=== PATIENT | female | born 1940 | race Caucasian/White ===

== ENCOUNTER → 2016-09-28 | Outpatient (REF) | payer MEDICARE ==
[~2016-09-28] MED LIST: CENTTAB47 PO; COLA100C3 PO; DULC5TAB PO; FLEEENE4 PR; GABA-282 PO; IBUP-1114 PO; LEVO75TA4 PO; LIDO5DIS36 TD; MOM30SS PO; MULTLIQ PO; PERC5TAB6 PO; VITA500046 PO; [UNRECOGNIZED DRUG - MIXTURE] PO
== END ==
LOC: M LABDRAW1 11:55
PROVIDERS: ATTEND Internal Medicine Endocrinology, Diabetes & Metabolism
DX: E06.3 Autoimmune thyroiditis (principal)

== ENCOUNTER → 2017-04-15 | Outpatient (REF) | payer MEDICARE ==
[2017-04-15 19:09] LABS: HEMATOCRIT 42.2 % (36.0-47.0); HEMOGLOBIN 13.4 g/dl (12.0-16.0); MEAN CORPUSCULAR HEMOGLOBIN 29.2 pg (27.0-33.0); MEAN CORPUSCULAR HGB CONC 31.8 g/dl (32.0-36.5); MEAN CORPUSCULAR VOLUME 91.9 fl (80.0-96.0); PLATELET COUNT, AUTOMATED 296 10^3/uL (150-450); RED BLOOD COUNT 4.59 10^6/uL (4.00-5.40); RED CELL DISTRIBUTION WIDTH 13.2 % (11.5-14.5)
[2017-04-15 20:04] LABS: ALBUMIN/GLOBULIN RATIO 1.25 (1.00-1.93); ALKALINE PHOSPHATASE 60 U/L (45-117); ALT/SGPT 27 U/L (12-78); ANION GAP 7 MEQ/L (8-16); AST/SGOT 17 U/L (7-37); BILIRUBIN,TOTAL 0.6 MG/DL (0.2-1.0); BLOOD UREA NITROGEN 22 MG/DL (7-18); CALCIUM LEVEL 9.2 MG/DL (8.8-10.2); CARBON DIOXIDE LEVEL 29 MEQ/L (21-32); CHLORIDE LEVEL 109 MEQ/L (98-107); CHOLESTEROL LEVEL 182 MG/DL (<200); CHOLESTEROL RISK RATIO 2.563 (<5); FREE T4 1.15 NG/DL (0.76-1.46); GLOMERULAR FILTRATION RATE > 60.0 (>39); GLUCOSE, FASTING 82 MG/DL (83-110); HDL CHOLESTEROL 71 MG/DL (>40); LDL CHOLESTEROL 93.2 MG/DL (<100); NON-HDL-C 111 MG/DL; SODIUM LEVEL 145 MEQ/L (136-145); TOTAL PROTEIN 7.2 GM/DL (6.4-8.2); TRIGLYCERIDES LEVEL 89 MG/DL (<150)
[2017-04-15 21:25] LABS: TOTAL 25(OH) VITAMIN D 43.2 NG/ML (30.0-100.0)
== END ==
LOC: M SFHCADAM 15:19
DX: M25.562 Pain in left knee (principal); E03.9 Hypothyroidism, unspecified; E78.5 Hyperlipidemia, unspecified; E55.9 Vitamin D deficiency, unspecified
CPT/HCPCS: 84443

== ENCOUNTER → 2017-08-09 | Outpatient (REF) | payer MEDICARE ==
[2017-08-09 16:18] LABS: TOTAL 25(OH) VITAMIN D 35.6 NG/ML (30.0-100.0)
== END ==
LOC: M LABDRAW1 13:35
DX: E06.3 Autoimmune thyroiditis (principal); E55.9 Vitamin D deficiency, unspecified
CPT/HCPCS: 84443

== ENCOUNTER → 2018-04-18 | Outpatient (REF) | payer MEDICARE ==
[~2018-04-18] MED LIST changes: -COLA100C3 PO; +COLA100C5 PO; -GABA-282 PO; +GABA-843 PO; -LIDO5DIS36 TD; +LIDO5DIS41 TD; +PERC5TAB12 PO; -PERC5TAB6 PO
[2018-04-18 11:01] LABS: ALBUMIN 3.6 GM/DL (3.2-5.2); ALT/SGPT 22 U/L (12-78); BILIRUBIN,TOTAL 0.6 MG/DL (0.2-1.0); BLOOD UREA NITROGEN 17 MG/DL (7-18); CALCIUM LEVEL 8.3 MG/DL (8.8-10.2); CARBON DIOXIDE LEVEL 27 MEQ/L (21-32); CHLORIDE LEVEL 107 MEQ/L (98-107); CHOLESTEROL LEVEL 158 MG/DL (<200); CHOLESTEROL RISK RATIO 2.548 (<5); CREATININE FOR GFR 0.62 MG/DL (0.55-1.30); FREE T4 1.18 NG/DL (0.76-1.46); GLOMERULAR FILTRATION RATE > 60.0 (>32); GLUCOSE, FASTING 86 MG/DL (70-100); HDL CHOLESTEROL 62 MG/DL (>40); LDL CHOLESTEROL 81 MG/DL (<100); NON-HDL-C 96 MG/DL; POTASSIUM SERUM 4.1 MEQ/L (3.5-5.1); SODIUM LEVEL 143 MEQ/L (136-145); TOTAL PROTEIN 6.8 GM/DL (6.4-8.2); TRIGLYCERIDES LEVEL 77 MG/DL (<150)
[2018-04-18 11:47] LABS: TOTAL 25(OH) VITAMIN D 53.8 NG/ML (30.0-100.0)
== END ==
LOC: M LABDRAW1 09:20
PROVIDERS: ATTEND Family Medicine
DX: E03.9 Hypothyroidism, unspecified (principal); E78.5 Hyperlipidemia, unspecified; E55.9 Vitamin D deficiency, unspecified

== ENCOUNTER → 2019-06-01 | Outpatient (REF) | payer MEDICARE ==
[2019-06-01 13:57] LABS: ALBUMIN 3.9 GM/DL (3.2-5.2); ALT/SGPT 31 U/L (12-78); BILIRUBIN,TOTAL 0.5 MG/DL (0.2-1.0); BLOOD UREA NITROGEN 14 MG/DL (7-18); CARBON DIOXIDE LEVEL 32 MEQ/L (21-32); CHLORIDE LEVEL 108 MEQ/L (98-107); CHOLESTEROL LEVEL 172 MG/DL (<200); CHOLESTEROL RISK RATIO 2.819 (<5); CREATININE FOR GFR 0.65 MG/DL (0.55-1.30); FREE T4 1.13 NG/DL (0.76-1.46); GLOMERULAR FILTRATION RATE > 60.0 (>32); GLUCOSE, FASTING 82 MG/DL (70-100); HDL CHOLESTEROL 61 MG/DL (>40); LDL CHOLESTEROL 94 MG/DL (<100); NON-HDL-C 111 MG/DL; POTASSIUM SERUM 4.3 MEQ/L (3.5-5.1); SODIUM LEVEL 142 MEQ/L (136-145); TRIGLYCERIDES LEVEL 86 MG/DL (<150)
[2019-06-01 13:58] LABS: HEMATOCRIT 44.3 % (36.0-47.0); HEMOGLOBIN 13.9 g/dl (12.0-15.5); MEAN CORPUSCULAR HEMOGLOBIN 28.7 pg (27.0-33.0); MEAN CORPUSCULAR HGB CONC 31.4 g/dl (32.0-36.5); MEAN CORPUSCULAR VOLUME 91.3 fl (80.0-96.0); PLATELET COUNT, AUTOMATED 312 10^3/uL (150-450); RED BLOOD COUNT 4.85 10^6/uL (4.00-5.40)
== END ==
LOC: M LABDRAW1 12:49
PROVIDERS: ATTEND Family Medicine
DX: H93.13 Tinnitus, bilateral (principal); E03.9 Hypothyroidism, unspecified; E78.5 Hyperlipidemia, unspecified

== ENCOUNTER → 2019-06-28 | Outpatient (CLI) | payer MEDICARE ==
--- NOTE | 2019-06-28 09:48 | REP ---
CHEST X-RAY: TWO VIEWS. HISTORY: Acute bronchitis. No comparison study. FINDINGS: The lungs are symmetrically aerated and free of focal infiltrate. The heart is not enlarged. The aorta is calcific and somewhat tortuous. Pulmonary vasculature is not increased. No significant bony abnormality is seen. There is a peripherally calcified 4.1 cm lesion in the right upper quadrant of the abdomen which may be in the liver or the gallbladder. Large stone versus peripherally calcified mass. Consider hepatic CT study. IMPRESSION: No active cardiopulmonary disease. 4.1 cm peripherally calcified lesion in the right upper quadrant. Hepatic versus gallbladder. Consider abdominal CT. Electronically Signed by Richie Swanson MD 06/28/2019 12:15 P
== END ==
LOC: M WUC 08:49
PROVIDERS: ATTEND Physician Assistant
DX: J20.9 Acute bronchitis, unspecified (principal)

== ENCOUNTER → 2020-02-06 | Outpatient (REF) | payer MEDICARE ==
[2020-02-06 12:21] LABS: HEMATOCRIT 45.1 % (36.0-47.0); HEMOGLOBIN 14.2 g/dl (12.0-15.5); MEAN CORPUSCULAR HEMOGLOBIN 28.6 pg (27.0-33.0); MEAN CORPUSCULAR HGB CONC 31.5 g/dl (32.0-36.5); MEAN CORPUSCULAR VOLUME 90.7 fl (80.0-96.0); PLATELET COUNT, AUTOMATED 296 10^3/uL (150-450); RED BLOOD COUNT 4.97 10^6/uL (4.00-5.40); WHITE BLOOD COUNT 7.8 10^3/uL (4.0-10.0)
[2020-02-06 13:04] LABS: ALBUMIN 4.2 GM/DL (3.2-5.2); ALT/SGPT 27 U/L (12-78); BILIRUBIN,TOTAL 0.6 MG/DL (0.2-1.0); BLOOD UREA NITROGEN 16 MG/DL (7-18); CALCIUM LEVEL 9.3 MG/DL (8.8-10.2); CARBON DIOXIDE LEVEL 27 MEQ/L (21-32); CHLORIDE LEVEL 107 MEQ/L (98-107); CHOLESTEROL LEVEL 200 MG/DL (<200); CHOLESTEROL RISK RATIO 2.985 (<5); CREATININE FOR GFR 0.64 MG/DL (0.55-1.30); FREE T4 1.31 NG/DL (0.76-1.46); GLOMERULAR FILTRATION RATE > 60.0 (>32); GLUCOSE, FASTING 82 MG/DL (70-100); HDL CHOLESTEROL 67 MG/DL (>40); LDL CHOLESTEROL 114 MG/DL (<100); MAGNESIUM LEVEL 2.3 MG/DL (1.8-2.4); NON-HDL-C 133 MG/DL; POTASSIUM SERUM 4.4 MEQ/L (3.5-5.1); SODIUM LEVEL 140 MEQ/L (136-145); TOTAL PROTEIN 7.4 GM/DL (6.4-8.2); TRIGLYCERIDES LEVEL 95 MG/DL (<150)
[2020-02-06 13:21] LABS: TOTAL 25(OH) VITAMIN D 79.5 NG/ML (30.0-100.0)
== END ==
LOC: M SFHCADAM 09:59
PROVIDERS: ATTEND Family Medicine
DX: E04.1 Nontoxic single thyroid nodule (principal); E03.9 Hypothyroidism, unspecified; R25.2 Cramp and spasm; E78.5 Hyperlipidemia, unspecified; E55.9 Vitamin D deficiency, unspecified; M81.0 Age-related osteoporosis without current pathological fracture; Z23 Encounter for immunization
CPT/HCPCS: 80053; 80061; 82306; 83735; 84439; 84443; 85027; 90682; G0008; G0463

== ENCOUNTER → 2020-02-09 | Outpatient (CLI) | payer MEDICARE ==
--- NOTE | 2020-02-09 12:57 | REP ---
INDICATION: NODULE OF LEFT LOBE OF THYROID GLAND. Nodule on clinician thyroid exam. COMPARISON: None. TECHNIQUE: High-resolution bilateral thyroid sonography. FINDINGS: Thyroid isthmus is normal measuring 0.2 cm. Right lobe dimensions by ultrasound a 3.8 x 1.0 x 1.4 cm. Left thyroid lobe measures 3.8 x 1.0 x 1.3 cm. No thyroid nodule is seen. No extra thyroid mass or adenopathy is observed. No cyst is seen. IMPRESSION: Negative thyroid sonography. No nodule or mass seen. <Electronically signed by Mayo Swanson > 02/09/20 [id number]
--- NOTE | 2020-02-14 17:18 | DEXA ---
INDICATION: VIT D DEF/E55.9. COMPARISON: 09/01/2013, 11/29/2000. TECHNIQUE: Bone density was measured using dual-energy x-ray absorptiometry (DEXA). FINDINGS: AP SPINE L1-L4 BMD 1.118 g/cm2 Young Adult T-Score -0.6 Age Matched Z-Score 1.3. LT FEMUR, TOTAL BMD 0.880 g/cm2 Young Adult T-Score -1.0 Age Matched Z-Score 1.1. LT NECK BMD 0.736 g/cm2 Young Adult T-Score -2.2 Age Matched Z-Score 0.1. RT FEMUR, TOTAL BMD 0.856 g/cm2 Young Adult T-Score -1.2 Age Matched Z-Score 0.9. RT NECK BMD 0.754 g/cm2 Young Adult T-Score -2.0 Age Matched Z-Score 0.2. IMPRESSION: There is normal bone density of the spine. There is low bone density of the left hip. There is low bone density of the right hip. The density of the spine has increased 26.3% since the initial exam on 11/29/2000. The density of the spine has not changed since most recent exam on 09/01/2013. The density of the left hip has decreased 1.0% since initial exam on 11/29/2000. The density of the left hip has decreased 4.6% since most recent exam on 09/01/2013. The density of the right hip has decreased 1.8% since the initial exam on 11/29/2000. The density of the right hip has decreased 4.9% since the most recent exam on 09/01/2013. FOLLOW-UP: Recommendation for the next bone density exam: 2 years. <Electronically signed by Francis Tariq > 02/14/20 [id number]
== END ==
LOC: M WHC 10:46
PROVIDERS: ATTEND Family Medicine
DX: E04.1 Nontoxic single thyroid nodule (principal); E55.9 Vitamin D deficiency, unspecified; M81.0 Age-related osteoporosis without current pathological fracture

== ENCOUNTER 2020-04-23 09:20 | Inpatient (IN) | payer MEDICARE ==
[~2020-04-23] VITALS: Ht 157.5 cm; Wt 76.4 kg
[~2020-04-23 09:20] MED LIST changes: +GABA-282 PO; -GABA-843 PO; -LIDO5DIS41 TD; +LIDO5DIS41 TOP
[2020-04-23] MEDS ORDERED: prevagen (09:39)
[2020-04-23] MEDS ORDERED: IBUP-1022 PO (09:39)
[2020-04-23] MEDS ORDERED: NS 1,000 ML IV ONE (09:45)
[2020-04-23 10:22] LABS: BASO % 0.4 % (0.0-1.0); EOS # 0.1 10^3/uL (0.0-0.5); HEMATOCRIT 39.5 % (36.0-47.0); HEMOGLOBIN 12.5 g/dl (12.0-15.5); LYMPH # 2.3 10^3/uL (1.5-5.0); LYMPH % 32.4 % (24.0-44.0); MEAN CORPUSCULAR HEMOGLOBIN 28.7 pg (27.0-33.0); MEAN CORPUSCULAR HGB CONC 31.6 g/dl (32.0-36.5); MEAN CORPUSCULAR VOLUME 90.6 fl (80.0-96.0); MONO # 0.6 10^3/uL (0.0-0.8); MONO % 8.9 % (0.0-5.0); NEUTROPHILS # 3.9 10^3/uL (1.5-8.5); NEUTROPHILS % 55.7 % (36.0-66.0); PLATELET COUNT, AUTOMATED 274 10^3/uL (150-450); RED BLOOD COUNT 4.36 10^6/uL (4.00-5.40)
[2020-04-23] MEDS ORDERED: ISOVUE-370 76% 100ML VIAL As Ordered ONE (10:37)
[2020-04-23] MEDS ORDERED: VITMTA PO (10:40)
[2020-04-23] MEDS ORDERED: PREVAGEN PO (10:40)
[2020-04-23 10:42] LABS: INR 1.07; PROTHROMBIN TIME 14.1 SECONDS (12.5-14.3)
[2020-04-23 10:43] LABS: PARTIAL THROMBOPLASTIN TIME 27.5 SECONDS (24.2-38.5)
[2020-04-23 10:56] LABS: CK-MB VALUE MASS 2.8 NG/ML (<3.6); MB/CK RELATIVE INDEX 2.2 (< OR =4); TROPONIN I 0.02 NG/ML (< 0.10)
[2020-04-23 11:06] LABS: ALBUMIN 3.8 GM/DL (3.2-5.2); BILIRUBIN,DIRECT 0.2 MG/DL (0.0-0.2); BILIRUBIN,TOTAL 0.5 MG/DL (0.2-1.0); THYROID STIMULATING HORMONE 1.86 uIU/ML (0.358-3.740); TOTAL PROTEIN 6.9 GM/DL (6.4-8.2)
[2020-04-23] MEDS ORDERED: LIDOCAINE 5% (LIDODERM) PATCH TOP PRN (12:15)
[2020-04-23] MEDS ORDERED: BISACODYL 5 MG TAB PO PRN (12:15)
[2020-04-23] MEDS ORDERED: DOCUSATE SODIUM 100MG CAPSULE PO PRN (12:15)
--- OUTSIDE RECORDS SUMMARY | 2020-04-23 12:21 | CCD ---
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13 Active 4924952215 102 Problem SHAWN (stress urinary incontinence, female) N39.3 Active 05150816 Problem 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.36 Active 21759741 ALLERGIES Allergen (clinical drug ingredient) Drug/Non Drug Allergy do cumented on EMR Reaction Allergy Type Onset Date Status sulfamethoxazole / trimethoprim Bactrim([facility] Code:[address]-05) rash Drug Allergy Active Sulfa (for allergy use only) Rash Drug Allergy Active ENCOUNTERS from 1940 to 2020-02-14 Encounter Location Date Provider Diagnosis [facility] [address] [place] [address] Jan, Jamie Winter IMMUNIZATIONS Vaccine Route Administration Date Status Influenza (18 yrs & older) Flublok IM Intramuscular Feb 06, 2020 Administered Influenza (18 yrs & older) Flublok IM Intramuscular Jan 12, 2019 Administered Influenza (18 yrs & older) Flublok IM Intramuscular Feb 22, 2018 Administered Influenza (High Dose 65 & up) Unknown Jan 24, 2015 Ad ministered Pneumococcal Adult 0.5mL (Pneumovax 23) Unknown Jan 11, 2004 Administered Pneumococcal 0.5mL (Prevnar 13) IM Intramuscular Apr 29, 2015 Administered Influenza (6mo & up) Fluzone Unknown Jan 11, 2016 Adm inistered SOCIAL HISTORY Tobacco Use: Social History Observation Description Date Details (start date - stop date) Never Smoker Sex Assigned At : Social History Observation Description Sex Assigned At Unknown Audit Question Answer Notes Total Score: 2 Interpretation: Alcohol Education Sexual Hx: Question Answer Notes Had sex in the last 12 months (vaginal, oral, or anal)? No Have you ever had an STD? No Drug and Alcohol Question Answer Notes Total Score: 0 Interpretation: No problems reported Alcohol Screening: Question Answer Notes Did you have a drink containing alcohol in the past year? Ye s Points 1 Interpretation Negative How often did you have six or more drinks on one occas ion in the past year? Never (0 points) How many drinks did you have on a typica l day when you were drinking in the past year? 1 or 2 (0 points) How often did you have a drink containing alcohol in t he past year? Monthly or less (1 point) BMI Care Goal Follow-Up Question Answer Notes Above Normal BMI Follow-Up Lifestyle education regarding t Tobacco Use: Question Answer Notes Are you a: never smoker REASON FOR REFERRAL No Information VITAL SIGNS No information MEDICATIONS Medication SIG (Take, Route, Frequency, Duration) Start Date En d Date Status Neurontin 300 MG 1 capsule Orally three times daily Mar, Not-Taking Benzonatate 100 MG TK 1 C PO THREE TIMES A DAY NEEDED FOR COU GH Oral for 6 Active Synthroid 75 MCG 1 tablet Orally bid Acti ve Clobetasol Propionate 0.05 % 1 application to affected area Externally Twice a day for 30 day(s) Jan, Active Lidocaine 5 % USE DIRECTED FOR 12 H ON 12 H OFF. MDD 3 PATCHES. External for 10 Active Gabapentin 300 MG TK 1 C PO BID Oral for 30 Not-Taking Ibuprofen 600 MG 1 tablet as needed Orally every 6 hrs prn Active Ventolin HFA 108 (90 Base) MCG/ACT INHALE 2 PUFFS PO Q 4 TO 6 HOURS PRN FOR SHORTNESS OF BREATH OR WHEEZING Inhalation for 16 Active PROCEDURES No Information RESULTS No Results REASON FOR VISIT thyroid US MEDICAL (GENERAL) HISTORY Type Description Date Medical History Hypothyroidism Medical History HTN Medical History Osteoporosis--DEXA 04/23--Fos amax was dc 04/23 - Dr. Negra Horta follows; DEXA 2013 FRAX risk 2.5%, ART not restarted Medical History IFG Medical History Vitamin D deficiency Medical History intermittent BL Sciatica (Dr. Burt) Medical History varicose veins Medical History DDD L/S spine, [facility] Medical History chronic nonallergic rhinitis Surgical History left breast biopsy (NEG) 2006 Surgical History colonoscopy (normal) 02/24 Goals Section No Information Health Concerns No Information MEDICAL EQUIPMENT No Information MENTAL STATUS No Information FUNCTIONAL STATUS No Information ASSESSMENTS No Information PLAN OF TREATMENT Next Appt Details Provider Name:Taz Winter, 2020-06 03:15:00 PM, [address] [place], [address], Insurance Providers Payer Name Payer Address Payer Phone Insured Name Patient Relati onship to Insured Coverage Start Date Coverage End Date MEDICARE Part A and B [address] [facility] [phone] [facility] OPTIONS [facility] CLAIM [facility] [address] [facility] [phone] ADA AMBROCIO
--- OUTSIDE RECORDS SUMMARY | 2020-04-23 12:21 | CCD ---
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13 Active 6178447091 102 Problem SHAWN (stress urinary incontinence, female) N39.3 Active 36124563 Problem 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.36 Active 14799012 ALLERGIES Allergen (clinical drug ingredient) Drug/Non Drug Allergy do cumented on EMR Reaction Allergy Type Onset Date Status sulfamethoxazole / trimethoprim Bactrim([facility] Code:[address]-91) rash Drug Allergy Active Sulfa (for allergy use only) Rash Drug Allergy Active ENCOUNTERS from 1940 to 2020-02-10 Encounter Location Date Provider Diagnosis [address] [place] [address] Jan, Jamie Villatorohn 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 E04.1 ; Encounter for immunization Z23 ; Hand cramps R25.2 ; Hypothyroidism, unspecified E03.9 ; Vitamin D deficiency, unspecified E55.9 ; Other and unspecified hyperlipidemia E78.5 and Age-related osteoporosis without current pathological fracture M81.0 IMMUNIZATIONS Vaccine Route Administration Date Status Influenza [...] REASON FOR REFERRAL No Information VITAL SIGNS Weight 171 lbs Jan, Height 62 in Jan, BMI 31.27 kg/m2 Jan, Heart Rate 97 /min Jan, Respiratory Rate 18 /min Jan, Temperature 96.3 degrees Fahrenheit Jan, Oximetry 97 Jan, Blood pressure systolic 136 mm Hg Jan, Blood pressure diastolic 78 mm Hg Jan, MEDICATIONS Medication SIG (Take, Route, Frequency, Duration) [...] for 16 Active PROCEDURES No Information RESULTS REASON FOR VISIT 6 month MEDICAL (GENERAL) HISTORY Type Description Date Medical History Hypothyroidism Medical History HTN Medical History Osteoporosis--DEXA 04/23--Fos amax was dc 04/23 - Dr. Negra Horta follows; DEXA 2013 FRAX risk 2.5%, ART not restarted Medical History IFG Medical History Vitamin D deficiency Medical History intermittent BL Sciatica (Dr. Burt) Medical History varicose veins Medical History DDD L/S spine, epidural injections at [facility] 2016 Medical History chronic nonallergic rhinitis Surgical History left breast biopsy (NEG) 2006 Surgical History colonoscopy (normal) 02/24 Goals Section No Information Health Concerns No Information MEDICAL EQUIPMENT No Information MENTAL STATUS No Information FUNCTIONAL STATUS No Information ASSESSMENTS Encounter Date Diagnosis Notes Jan, 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 (IC D-10 - E04.1) Jan, Hand cramps (ICD-10 - R25.2) Jan, Encounter for immunization (ICD-10 - Z23 ) Jan, Vitamin D deficiency, unspecified (ICD-1 0 - E55.9) Jan, Hypothyroidism, unspecified (ICD-10 - E0 3.9) Jan, Age-related osteoporosis wit hout current pathological fracture (ICD-10 - M81.0) Jan, Other and unspecified hyperlipidemia (IC D-10 - E78.5) PLAN OF TREATMENT Treatment Notes Test Name Order Date Immunization: Flublok Quadrivalent (18 years & older) 0.5mL IM (Influenza) 2020-02-10 Future Test Test Name Order Date DEXA Hip and Spine [id number] PLZ THYROID, SOFT TISSUE HEAD +NECK US [id number] Next Appt Details 06/2020--MAW Reason: Provider Name:Taz Winter, 2020-06 03:15:00 PM, [address], [place], [address], Insurance Providers Payer Name Payer Address Payer Phone Insured Name Patient Relati onship to Insured Coverage Start Date Coverage End Date [employer] HE[employer] CARE OPTIONS [facility] CLAIM DIV [address] [facility] [phone] ADA AMBROCIO MEDICARE Part A and B [address] [facility] [phone] [phone] ADA AMBROCIO
--- OUTSIDE RECORDS SUMMARY | 2020-04-23 12:22 | CCD ---
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 Name Role Phone LETICIA TEJEDA Unavailable Unavailable LETICIA TEJEDA Unavailable Unavailable LETICIA TEJEDA PA Unavailable Unavailable LETICIA TEJEDA PA Unavailable Unavailable LETICIA TEJEDA PA Unavailable Unavailable LETICIA TEJEDA PA Unavailable Unavailable LETICIA TEJEDA PA Unavailable Unavailable LETICIA TEJEDA PA Unavailable Unavailable LETICIA TEJEDA PA Unavailable Unavailable LETICIA TEJEDA PA Unavailable Unavailable LETICIA TEJEDA PA Unavailable Unavailable LETICIA TEJEDA PA Unavailable Unavailable LETICIA TEJEDA PA Unavailable Unavailable ILEANA, LETICIA PA Unavailable Unavailable ILEANA, LETICIA PA Unavailable Unavailable ILEANA, LETICIA PA Unavailable Unavailable ILEANA, LETICIA PA Unavailable Unavailable ILENAA, LETICIA PA Unavailable Unavailable ILEANA, LETICIA PA Unavailable Unavailable ILEANA, LETICIA PA Unavailable Unavailable ILEANA, LETICIA PA Unavailable Unavailable ILEANA, LETICIA PA Unavailable Unavailable ILEANA, LETICIA PA Unavailable Unavailable ILEANA, LETICIA PA Unavailable Unavailable ILEANA, LETICIA PA Unavailable Unavailable ILEANA, LETICIA PA Unavailable Unavailable ILEANA, LETICIA PA Unavailable Unavailable ILEANA, LETICIA PA Unavailable Unavailable ILEANA, LETICIA PA Unavailable Unavailable ILEANA, LETICIA PA Unavailable Unavailable ILEANA, LETICIA PA Unavailable Unavailable ILEANA, LETICIA PA Unavailable Unavailable ILEANA, LETICIA PA Unavailable Unavailable ILEANA, LETICIA PA Unavailable Unavailable ILEANA, LETICIA PA Unavailable Unavailable ILEANA, LETICIA PA Unavailable Unavailable ILEANA, LETICIA PA Unavailable Unavailable ILEANA, LETICIA PA Unavailable Unavailable LETTIERE, A ROZINA PA Unavailable Unavailable LETTIERE, A ROZINA PA Unavailable Unavailable LETTIERE, A ROZINA PA Unavailable Unavailable LETTIERE, A ROZINA PA Unavailable Unavailable LETTIERE, A ROZINA PA Unavailable Unavailable LETTIERE, A ROZINA PA Unavailable Unavailable LETTIERE, A ROZINA PA Unavailable Unavailable LETTIERE, A ROZINA PA Unavailable Unavailable LETTIERE, A ROZINA PA Unavailable Unavailable LETTIERE, A ROZINA PA Unavailable Unavailable LETTIERE, A ROZINA PA Unavailable Unavailable LETTIERE, A ROZINA PA Unavailable Unavailable LETTIERE, A ROZINA PA Unavailable Unavailable LETTIERE, A ROZINA PA Unavailable Unavailable LETTIERE, A ROZINA PA Unavailable Unavailable LETTIERE, A ROZINA PA Unavailable Unavailable LETTIERE, A ROZINA PA Unavailable Unavailable LETTIERE, A ROZINA PA Unavailable Unavailable LETTIERE, A ROZINA PA Unavailable Unavailable LETTIERE, A ROZINA PA Unavailable Unavailable LETTIERE, A ROZINA PA Unavailable Unavailable LETTIERE, A ROZINA PA Unavailable Unavailable LETTIERE, A ROZINA PA Unavailable Unavailable LETTIERE, A ROZINA PA Unavailable Unavailable LETTIERE, A ROZINA PA Unavailable Unavailable LETTIERE, A ROZINA PA Unavailable Unavailable LETTIERE, A ROZINA PA Unavailable Unavailable LETTIERE, A ROZINA PA Unavailable Unavailable LETTIERE, A ROZINA PA Unavailable Unavailable Re-disclosure Warning The records that you are about to access may contain information from federally-assisted alcohol or drug abuse programs. If such information is present, then the following federally mandated warning applies: This information has been disclosed to you from records protected by federal confidentiality rules (42 CFR part 2). The federal rules prohibit you from making any further disclosure of this information unless further disclosure is expressly permitted by the written consent of the person to whom it pertains or as otherwise permitted by 42 CFR part 2. A general authorization for the release of medical or other information is NOT sufficient for this purpose. The Federal rules restrict any use of the information to criminally investigate or prosecute any alcohol or drug abuse patient.The records that you are about to access may contain highly sensitive health information, the redisclosure of which is protected by Article 27-F of the [facility] Public Health law. If you continue you may have access to information: Regarding HIV / AIDS; Provided by facilities licensed or operated by the [facility] Office of Mental Health; or Provided by the [facility] Office for People With Developmental Disabilities. If such information is present, then the following [facility] mandated warning applies: This information has been disclosed to you from confidential records which are protected by state law. State law prohibits you from making any further disclosure of this information without the specific written consent of the person to whom it pertains, or as otherwise permitted by law. Any unauthorized further disclosure in violation of state law may result in a fine or half-way sentence or both. A general authorization for the release of medical or other information is NOT sufficient authorization for further disc losure. Allergies and Adverse Reactions Type Description Substance Reaction Status Data Source(s ) Drug allergy Bactrim sulfamethoxazole / trimethoprim rash Ac tive eCW1 ([facility]) Family History Family Member Name Family Member Gender Family Member Status Date o f Status Description Data Source(s) Unknown Unknown Problem MEDENT ([facility]) Unknown Female Problem MEDENT ([facility]) Encounters Encounter Providers Location Date Indications Data Source(s ) [place] [address] [facility] [address] 02/09/2020 12:00:00 AM EDT eCW1 ([facility]) Out[place] [address] [facility] [address] 02/06/2020 12:00:00 AM EDT eCW1 ([facility]) [facility] [place] [address] [facility] [address] 07/07/2019 12:00:00 AM EDT eCW1 ([facility]) Outpatient Attender: LETICIA Wisdoma ry 06/28/2019 08:10:00 AM EDT MEDENT ([facility]) Outpatient Attender: ROZINA Wisdom tika 06/18/2019 08:00:00 AM EDT MEDENT ([facility]) [facility] [place] [address] [facility] [address] 04/18/2019 12:00:00 AM EST eCW1 ([facility]) [facility] [place] [address] [facility] [address] 04/17/2019 12:00:00 AM EST eCW1 ([facility]) Immunizations Vaccine Date Status Description Data Source(s) influenza, recombinant, quadrIvalent,injectable, prese rvative free 02/06/2020 09:42:00 AM EDT completed eCW1 ([facility]) influenza, recombinant, quadrIvalent,injectable, prese rvative free 02/06/2020 09:42:00 AM EDT completed eCW1 ([facility]) Medications Medication Brand Name Start Date Product Form Dose Route Admi nistrative Instructions Pharmacy Instructions Status Indications Reaction Description Data Source(s) 200 ACTUAT Albuterol 0.09 MG/ACTUAT Metered Dose Inhal er [Ventolin] Ventolin HFA 06/28/2019 12:00:00 AM EDT RESPIRATORY active MEDENT ([facility], [facility]) Aerochamber Plus Tres-Vu 06/28/2019 12:00:00 AM EDT active MEDENT ([facility], [facility]) benzonatate 100 MG Oral Capsule Benzonatate 06/28/2019 12:00:00 AM EDT ORAL active MEDENT ([facility], [facility]) Amoxicillin 875 MG Oral Tablet Amoxicillin 06/18/2019 12:00:00 AM EST completed MEDENT ([facility], [facility]) Prednisone 20 MG Oral Tablet Prednisone 06/18/2019 12:00:00 AM EST completed MEDENT ([facility], [facility]) 12 HR Dextromethorphan Hydrobromide 30 M G / Guaifenesin 600 MG Extended Release Oral Tablet [Mucinex DM] Mucinex DM 06/18/2019 12:00:00 AM EST completed MEDENT ([facility], [facility]) Insurance Providers Payer name Policy type / Coverage type Policy ID Covered libertarian ID Covered libertarian's relationship to pulido Policy Pulido Plan Information MEDICARE [id number] SP [id number] [facility] OPTIONS [id number] SP [id number] ANS-Medicare Part B [id number] ANSI-Commercial [id number] [facility] Health Care Options [facility] Part B [id number] Self [id number] Medicare Natl Gov't Servi Medicare Primary [id number] Self [id number] [facility] Part B [id number] Self [id number] [place] Insurance Commercial [id number] Self [id number] [facility] Part B [id number] Self [id number] [place] Primary [id number] Self [id number] ANSI-Medicare Part B [id number] ANSI-Commercial [id number] MEDICARE [id number] SP [id number] A ANSI-Commercial [id number] ANSI-Medicare Part B [id number] [place] Health Care Options Medigap Part B [id number] Self [id number] Medicare Natl Gov't Serv Medicare Primary [id number] Self [id number] ANSI-Medicare Part B [id number] ANSI-Commercial [id number] ANSI-Medicare Part B [id number] ANSI-Commercial [id number] [place] Insurance Commercial [id number] Self [id number] [employer] [place] Medigap Part B [id number] Self [id number] [facility] Options Medigap Part B [id number] Self [id number] Medicare Dme Supplies Medigap Part B [id number] Self [id number] Medicare [place] Medicare Primary [id number] Self [id number] [place] Insurance Commercial [id number] Self [id number] BS [place] Medigap Part B [id number] Self [id number] [employer] Options Medigap Part B [id number] Self [id number] Medicare Dme Supplies Medigap Part B [id number] Self [id number] [place] Medicare Primary [id number] Self [id number] [place] Insurance Commercial [id number] Self [id number] BS [place] Medig[employer] Part B [id number] Self [id number] [employer] Options Medigap Part B [id number] Self [id number] Medicare Dme Supplies Medigap Part B [id number] Self [id number] [place] Medicare Primary [id number] Self [id number] BS [place] Medig[employer] Part B [id number] Self [id number] [place] Insurance Commercial [id number] Self [id number] [facility] [employer] Options Medigap Part B [id number] Self [id number] Medicare [place] Medicare Primary [id number] Self [id number] [place] Insurance Commercial [id number] Self [id number] BS [place] Medigap Part B [id number] Self [id number] [employer] Options Medigap Part B [id number] Self [id number] Medicare Dme Supplies Medigap Part B [id number] Self [id number] Medicare [place] Medicare Primary [id number] Self [id number] [place] Insurance Commercial [id number] Self [id number] BS [place] Medigap Part B [id number] Self [id number] [employer] Options Medigap Part B [id number] Self [id number] Medicare Dme Supplies Medigap Part B [id number] Self [id number] Medicare [place] Medicare Primary [id number] Self [id number] [place] Insurance Commercial [id number] Self [id number] BS [place] Medigap Part B [id number] Self [id number] [employer] Options Medigap Part B [id number] Self [id number] Medicare Dme Supplies Medigap Part B [id number] Self [id number] Medicare [place] Medicare Primary [id number] Self [id number] [place] Insurance Commercial [id number] Self [id number] BS [place] Medigap Part B [id number] Self [id number] [employer] Options Medigap Part B [id number] Self [id number] Medicare Dme Supplies Medigap Part B [id number] Self [id number] [place] Medicare Primary [id number] Self [id number] [place] Insurance Commercial [id number] Self [id number] BS [place] Medigap Part B [id number] Self [id number] [employer] Options Medigap Part B [id number] Self [id number] Medicare Dme Supplies Medigap Part B [id number] Self [id number] Medicare [place] Medicare Primary [id number] Self [id number] [place] Insurance Commercial [id number] Self [id number] BS [place] Medigap Part B [id number] Self [id number] [employer] Options Medigap Part B [id number] Self [id number] Medicare Dme Supplies Medigap Part B [id number] Self [id number] Medicare [place] Medicare Primary [id number] Self [id number] [place] Insurance Commercial [id number] Self [id number] BS [place] Medigap Part B [id number] Self [id number] [employer] Options Medigap Part B [id number] Self [id number] Medicare [place] Medicare Primary [id number] Self [id number] [place] Insurance Commercial [id number] Self [id number] BS [place] Medigap Part B [id number] Self [id number] [employer] Options Medigap Part B [id number] Self [id number] Medicare [place] Medicare Primary [id number] Self [id number] [place] Insurance Commercial [id number] Self [id number] BS [place] Medig[employer] Part B [id number] Self [id number] [employer] Options Medigap Part B [id number] Self [id number] Medicare [place] Medicare Primary [id number] Self [id number] [place] Insurance Commercial [id number] Self [id number] BS [place] Medigap Part B [id number] Self [id number] [employer] Options Medigap Part B [id number] Self [id number] Medicare [place] Medicare Primary [id number] Self [id number] AARP O [id number] S [id number] MEDICARE C [id number] S [id number] [place] Insurance Commercial [id number] Self [id number] BS [place] Medigap Part B [id number] Self [id number] [employer] Options Medigap Part B [id number] Self [id number] Medicare [place] Medicare Primary [id number] Self [id number] [place] Insurance Commercial [id number] Self [id number] BS [place] Medigap Part B [id number] Self [id number] [employer] Options Medigap Part B [id number] Self [id number] Medicare [place] Medicare Primary [id number] Self [id number] BS [place] Medigap Part B [id number] Self [id number] [place] Insurance Commercial [id number] Self [id number] [facility] Options Medigap Part B [id number] Self [id number] Medicare [place] Medicare Primary [id number] Self [id number] BS [place] Medigap Part B Self [employer] Options Medigap Part B Self [place] Insurance Commercial Self Medicare [place] Medicare Primary Self AARP [facility] CARE OPTIONS [id number] SP [id number] BS [place] Medigap Part B Self [employer] Options Medigap Part B Self Aarp Medigap Part B Self Medicare [place] Medicare Primary Self AARP HE[employer] CARE OPTIONS [id number] SP [id number] AARP HE[employer] CARE OPTIONS [id number] SP [id number] AARP HEALTH CARE OPTIONS [id number] SP [id number] [employer] [place] 304/804 [id number] SP [id number] [employer] [place] 304/804 [id number] SP [id number] [facility] [id number] SP [id number] [employer] [place] 304/804 [id number] SP [id number] [employer] [place] 304/804 [id number] SP [id number] MEDICARE [id number] A [id number] A Problems, Conditions, and Diagnoses Code Display Name Description Problem Type Effective Dates Data Source(s) M81.0 89458847 Age-related osteoporosis without current pathological fracture Problem 02/06/2020 12:00:00 AM EDT eCW1 ([facility]) E04.1 [id number] 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 Prob radha 02/06/2020 12:00:00 AM EDT eCW1 ([facility]) M51.36 70788540 Degeneration of intervertebral disc of elizabeth mbar region Problem 07/07/2019 12:00:00 AM EDT eCW1 ([facility]) N39.3 49619170 SHAWN (stress urinary incontinence, female) Problem 07/07/2019 12:00:00 AM EDT eCW1 ([facility]) M51.36 [id number] Degeneration of intervertebral disc of elizabeth mbar region Problem 07/07/2019 12:00:00 AM EDT eCW1 ([facility]) N39.3 [id number] SHAWN (stress urinary incontinence, female) Problem 07/07/2019 12:00:00 AM EDT eCW1 ([facility]) Surgeries/Procedures Procedure Description Date Indications Data Source(s) Annual wellness visit, includes a person alized prevention plan of service (pps), subsequent visit 07/07/2019 12:00:00 AM EDT eCW1 ([facility]) PRESSURIZED/NONPRESSURIZED INHALATION TREATMENT 2019 12:00:00 AM EDT MEDENT ([facility]) Office Visit, Est Pt., Level 3 PC 04/18/2019 12:00:00 AM EST eCW1 ([facility]) Office Visit, Est Pt., Level 2 FC 04/18/2019 12:00:00 AM EST eCW1 ([facility]) Results ID Date Data Source LIPID PANEL (CARDIAC RISK) 02/07/2020 12:52:26 PM EDT eCW1 ( [facility]) Name Value Range Interpretation Code Description Data Celine rce(s) Supporting Document(s) Cholesterol [Moles/volume] in Serum or Plasma 200 eCW1 ([facility]) Triglyceride [Mass/volume] in Serum or Plasma by calculation 95 eCW1 ([facility]) Cholesterol in LDL [Mass/volume] in Serum or Plasma by calculation 11 4 eCW1 ([facility]) Cholesterol in HDL [Moles/volume] in Serum or Plasma 67 eCW1 ([facility]) 2.985 eCW1 ([facility]) 133 eCW1 ([facility]) ID Date Data Source MAGNESIUM LEVEL 02/07/2020 12:52:26 PM EDT eCW1 ([facility]) Name Value Range Interpretation Code Description Data Celine rce(s) Supporting Document(s) 2.3 eCW1 ([facility]) ID Date Data Source VITAMIN D 25-HYDROXY 02/07/2020 12:52:26 PM EDT eCW1 ([facility]) Name Value Range Interpretation Code Description Data Celine rce(s) Supporting Document(s) 79.5 eCW1 ([facility]) ID Date Data Source FREE T4 & TSH PANEL 02/07/2020 12:52:26 PM EDT eCW1 ([facility]) Name Value Range Interpretation Code Description Data Celine rce(s) Supporting Document(s) 1.550 eCW1 ([facility]) 1.31 eCW1 ([facility]) ID Date Data Source Comprehensive Metabolic Profile (CMP) 02/07/2020 12:52:26 PM EDT eCW1 ([facility]) Name Value Range Interpretation Code Description Data Celine rce(s) Supporting Document(s) 16 eCW1 ([facility]) 82 eCW1 ([facility]) 0.64 eCW1 ([facility]) 4.4 eCW1 ([facility]) 140 eCW1 ([facility]) 107 eCW1 ([facility]) > 60.0 eCW1 ([facility]) 9.3 eCW1 ([facility]) 27 eCW1 ([facility]) 27 eCW1 ([facility]) 17 eCW1 ([facility]) 63 eCW1 ([facility]) 7.4 eCW1 ([facility]) 4.2 eCW1 ([facility]) 0.6 eCW1 ([facility]) 1.3 eCW1 ([facility]) ID Date Data Source CBC - Complete Blood Count 02/07/2020 12:52:26 PM EDT eCW1 ( [facility]) Name Value Range Interpretation Code Description Data Celine rce(s) Supporting Document(s) 7.8 eCW1 ([facility]) 45.1 eCW1 ([facility]) 4.97 eCW1 ([facility]) 90.7 eCW1 ([facility]) 14.2 eCW1 ([facility]) 28.6 eCW1 ([facility]) 296 eCW1 ([facility]) 31.5 eCW1 ([facility]) 13.7 eCW1 ([facility]) Procedure Social History Code Duration Value Status Description Data Source(s ) Smoking 02/06/2020 12:00:00 AM EDT Never Smoker completed Never S moker eCW1 ([facility]) Smoking 02/06/2020 12:00:00 AM EDT Never Smoker completed Never S moker eCW1 ([facility]) Vital Signs ID Date Data Source UNK Name Value Range Interpretation Code Description Data Source(s) Diastolic blood pressure 78 mm[Hg] 78 mm[Hg] eCW1 ([facility]) Systolic blood pressure 136 mm[Hg] 136 mm[Hg] e CW1 ([facility]) Body temperature 96.3 [degF] 96.3 [degF] eCW1 ( [facility]) Respiratory rate 18 /min 18 /min eCW1 ([facility]) Heart rate 97 /min 97 /min eCW1 ([facility]) Body mass index (BMI) [Ratio] 31.27 kg/m2 31.27 kg/m2 eCW1 ([facility]) Body height 62 [in_i] 62 [in_i] W1 ([facility]) Body weight 171 [lb_av] 171 [lb_av] eCW1 ([facility]) Body mass index (BMI) [Ratio] 31.2 kg/m2 31.2 k g/m2 MEDENT ([facility], [facility]) Body height 61 [in_i] 61 [in_i] MEDENT ([facility], [facility]) 5'1" Body weight 165.00 [lb_av] 165.00 [lb_av] MEDEN T ([facility], [facility]) Body temperature 99.3 [degF] 99.3 [degF] MEDENT ([facility], [facility]) Oxygen saturation in Arterial blood by Pulse oximetry 96 % 96 % MEDENT ([facility], [facility]) Respiratory rate 19 /min 19 /min MEDENT ( [facility]) Heart rate 116 /min 116 /min MEDENT ([facility], [facility]) Diastolic blood pressure 76 mm[Hg] 76 mm[Hg] MEDENT ([facility], [facility]) Systolic blood pressure 136 mm[Hg] 136 mm[Hg] M EDENT ([facility], [facility]) Body mass index (BMI) [Ratio] 31.2 kg/m2 31.2 k g/m2 MEDENT ([facility]) Body height 61 [in_i] 61 [in_i] MEDENT ([facility], [facility]) 5'1" Body weight 165.00 [lb_av] 165.00 [lb_av] MEDEN T ([facility], [facility]) Body temperature 98.0 [degF] 98.0 [degF] MEDENT ([facility], [facility]) Oxygen saturation in Arterial blood by Pulse oximetry 97 % 97 % MEDENT ([facility], [facility]) Respiratory rate 17 /min 17 /min MEDENT ( [facility]) Heart rate 84 /min 84 /min MEDENT ([facility], [facility]) Diastolic blood pressure 84 mm[Hg] 84 mm[Hg] MEDENT ([facility], [facility]) Systolic blood pressure 164 mm[Hg] 164 mm[Hg] M EDENT ([facility], [facility]) Diastolic blood pressure 82 mm[Hg] 82 mm[Hg] eCW1 ([facility]) Systolic blood pressure 120 mm[Hg] 120 mm[Hg] e CW1 ([facility]) Body temperature 97.2 [degF] 97.2 [degF] eCW1 ( [facility]) Respiratory rate 18 /min 18 /min eCW1 ([facility]) Heart rate 89 /min 89 /min eCW1 ([facility]) Body mass index (BMI) [Ratio] 30.43 kg/m2 30.43 kg/m2 W1 ([facility]) Body height 62 [in_us] 62 [in_us] eCW1 ([facility]) Body weight Measured 166.4 [lb_av] 166.4 [lb_av ] eCW1 ([facility])
--- NOTE | 2020-04-23 12:32 | HPEPDOC ---
General Date of Admission Apr 23, 2020 at 11:58 Date of Service: Apr 23, 2020 Chief Complaint The patient is a 80-year-old female admitted with a reason for visit of Gi Bleed. Source: Patient Exam Limitations: No limitations Timing/Duration: Day(s) Severity: Moderate History of Present Illness Patient is 80 years old female with past medical history of hypothyroidism, hypertension, osteoporosis, sciatica pain presented to the hospital with history of black stool. Patient stated that for past 5 days she has been having daily black stool. She denies any stomach pain, diarrhea, fever. Patient stated that she ibuprofen daily for 1 year and half due to chronic sciatica pain. In ER patient was found to have stool positive for blood, hemoglobin 12.5 with baseline hemoglobin 13.5. Home Medications Scheduled Levothyroxine Sodium (Levothyroxine Sodium) 75 Mcg Tab, 75 MCG PO DAILY, (Reported) Multivitamins (Thera M Plus Tablet) 1 Each Tablet, 1 TAB PO DAILY, (Reported) [Prevagen] , 1 TAB PO DAILY, (Reported) Scheduled PRN Bisacodyl (Dulcolax) 5 Mg Tab, 5 MG PO DAILY PRN for CONSTIPATION, (Reported) Docusate Sodium (Colace) 100 Mg Cap, 100 MG PO BID PRN for CONSTIPATION, (Reported) Ibuprofen (Ibuprofen) 600 Mg Tablet, 600 MG PO TID PRN for PAIN, (Reported) Lidocaine (Lidoderm) 5 % Dis, 3 PATCH TOP DAILY PRN for PAIN, (Reported) APPLY TO LOWER BACK Allergies Coded Allergies: Sulfa (Sulfonamide Antibiotics) (Verified Allergy, Mild, 04/23/20) rash Past Medical History Medical History HYPOTHYROIDISM HTN OSTEOPOROSIS--DEXA 04/23--FOSAMAX WAS DC 04/23 - DR. ARCADIO GARZA FOLLOWS; DEXA 2013 FRAX RISK 2.5%, ART NOT RESTARTED IFG VITAMIN D DEFICIENCY INTERMITTENT BL SCIATICA (DR. TRIANA) VARICOSE VEINS DDD L/S SPINE, EPIDURAL INJECTIONS AT [facility] [place] 2016 CHRONIC NONALLERGIC RHINITIS Surgical History LEFT BREAST BIOPSY (NEG) 2006 COLONOSCOPY (NORMAL) 02/24 Family History FATHER: PROSTATE CANCER, DIAGNOSED WITH OTHER MALIGNANT NEOPLASM OF UNSPECIFIED SITE MOTHER: OSTEOPOROSIS, HTN, HYPERTENSION SIBLINGS: BROTHER X 2 PROSTATE CANCER SISTER - GOITER. SISTER WITH ALZHEIMER'S, OTHER MALIGNANT NEOPLASM OF UNSPECIFIED SITE 6 BROTHER(S) , 3 SISTER(S) . 1 SON(S) , 3 DAUGHTER(S) - HEALTHY. NO FAMILY HX OF BLADDER OR KIDNEY CANCER. , REVIEWED, UPDATED. Social History * Smoker: Denies Alcohol: Denies Drugs: denies A-FIB/CHADSVASC A-FIB History Current/History of A-Fib/PAF?: No Current PO Anticoag Therapy: No Review of Systems Constitutional: Denies: Chills, Fever Eyes: Denies: Pain, Vision change Skin: Denies: Rash, Lesions Pulmonary: Denies: Dyspnea, Cough Cardiovascular: Denies: Chest Pain Gastrointestinal: Reports: Melena; Denies: Nausea Genitourinary: Denies: Dysuria Hematologic: Denies: Bruising, Bleeding Excessively Endocrine: Denies: Polydipsia, Polyphagia Musculoskeletal: Denies: Neck Pain Neurological: Denies: Weakness Psych: Reports: Mood Normal Physical Examination General Exam: Positive: Alert, Cooperative Eye Exam: Positive: PERRLA ENT Exam: Positive: Atraumatic Neck Exam: Positive: Supple; Negative: JVD Chest Exam: Positive: Clear to auscultation Heart Exam: Positive: Rate Normal Telemetry: Positive: No significant arrhythmia Abdomen Exam: Positive: Normal bowel sounds Extremity Exam: Negative: Clubbing, Cyanosis Skin Exam: Positive: Nl turgor and temperature Neuro Exam: Positive: Strength at 5/5 X4 ext Psych Exam: Positive: Mental status NL Vital Signs Vital Signs Date Time Temp Pulse Resp B/P (MAP) Pulse Ox O2 Delivery O2 Flow Rate FiO2 04/23/20 11:01 89 18 151/97 (115) 95 Room Air 04/23/20 09:21 98.3 Laboratory Data Labs 24H Laboratory Tests 2 04/23/20 09:44: Prothrombin Time 14.1H, Prothromb Time International Ratio 1.07, Activated Partial Thromboplast Time 27.5, Lactic Acid Level 1.2, Total Bilirubin 0.5, Direct Bilirubin 0.2, Aspartate Amino Transf (AST/SGOT) 16, Alanine A minotransferase (ALT/SGPT) 26, Alkaline Phosphatase 60, Total Protein 6.9, Albumin 3.8, Albumin/Globulin Ratio 1.2, Lipase 75, Thyroid Stimulating Hormone (TSH) 1.860 04/23/20 09:58: Immature Granulocyte % (Auto) 0.6, Neutrophils (%) (Auto) 55.7, Lymphocytes (%) (Auto) 32.4, Monocytes (%) (Auto) 8.9H, Eosinophils (%) (Auto) 2.0, Basophils (%) (Auto) 0.4, Neutrophils # (Auto) 3.9, Lymphocytes # (Auto) 2.3, Monocytes # (Auto) 0.6, Eosinophils # (Auto) 0.1, Basophils # (Auto) 0.0, Nucleated Red Blood Cells % (auto) 0.0 04/23/20 10:06: Total Creatine Kinase 127, Creatine Kinase MB 2.8, Creatine Kinase MB Relative Index 2.20, Troponin I 0.02 04/23/20 10:13: POC Glucose (Misc Panel) 106H, POC Sodium (Misc Panel) 141, POC Potassium (Misc Panel) 3.7, POC Chloride (Misc Panel) 106, POC Total CO2 (Misc Panel) 23.0, POC Blood Urea Nitrogen (Misc Panel 19, POC Ionized Calcium (Misc Panel) 4.6, POC Creatinine (Misc Panel) 0.5L, POC Hematocrit (Misc Panel) 38.0 04/23/20 11:37: 04/23/20 11:59: Urine Color YELLOW, Urine Appearance HAZY, Urine pH 6.0, Urine Specific [place] 1.010, Urine Protein NEGATIVE, Urine Glucose (UA) NEGATIVE, Urine Ketones NEGATIVE, Urine Blood 1+H, Urine Nitrite POSITIVEH, Urine Bilirubin NEGATIVE, Urine Urobilinogen 0.2, Urine Leukocyte Esterase TRACEH, Urine WBC (Auto) 3, Urine RBC (Auto) 0, Urine Hyaline Casts (Auto) 0, Urine Bacteria (Auto) 1+H, Urine Squamous Epithelial Cells 0, Urine Sperm (Auto) CBC/BMP Laboratory Tests 04/23/20 09:58 Microbiology Microbiology 04/23/20 Urine Culture, Received Pending Assessment/Plan Patient is 80 years old female with past medical history of hypothyroidism, hypertension, osteoporosis, sciatica pain presented to the hospital with history of black stool. Patient stated that for past 5 days she has been having daily black stool. She denies any stomach pain, diarrhea, fever. Patient stated that she ibuprofen daily for 1 year and half due to chronic sciatica pain. In ER patient was found to have stool positive for blood, hemoglobin 12.5 with baseline hemoglobin 13.5. Problems (1) GI bleed Status: Acute Problem Text: Most likely upper GI secondary to long therapy with ibuprofen H&H every 6 hours PPI Clear liquid diet Appreciate/agree with surgical consult (2) HTN (hypertension) Status: Chronic Problem Text: Lisinopril 20 mg (3) Hypothyroid Status: Chronic Problem Text: Continue levothyroxine Plan / VTE VTE Prophylaxis Ordered?: No VTE Exclusion Pharmacological: Active Bleeding ALISON MATOS DO Apr 23, 2020 12:32
[2020-04-23 13:14] LABS: HEMATOCRIT 37.2 % (36.0-47.0); HEMOGLOBIN 11.7 g/dl (12.0-15.5)
--- NOTE | 2020-04-23 14:06 | REP ---
INDICATION: GI Bleed COMPARISON: None. TECHNIQUE: CT Scan of the abdomen and pelvis was performed with intravenous administration of 100 cc of Isovue 370, without oral contrast. FINDINGS: Lung bases: There is a small hiatal hernia. No infiltrate is seen. Liver: Multiple cysts are scattered throughout the liver measuring up to 4 cm in diameter. A cyst in the posterior segment of the right lobe demonstrates a heavily calcified wall. Gallbladder: Unremarkable. Spleen: Normal. Adrenals: There is mild thickening of the left adrenal gland. Pancreas: Normal. Kidneys: There are small cysts seen in each kidney. There is no hydronephrosis. Small and large bowel: There are multiple diverticula throughout the colon. There is no definite evidence of acute diverticulitis. Free fluid: None. Abdominal aorta: No aneurysm or dissection. Adenopathy: None. Appendix: Not inflamed. Osseous structures: There are degenerative changes of the spine without compression deformity. Pelvis: No mass. IMPRESSION: Small hiatal hernia. Multiple diverticula seen throughout the colon without evidence for acute diverticulitis. No free air or free fluid. <Electronically signed by Francis Tariq > 04/23/20 [id number]
[2020-04-23 14:20] VITALS: BP 184/92
[2020-04-23] MEDS: PANTOPRAZOLE 40MG VIAL (C9113 PER 1) IV SCH ×2 (14:40→20:44)
[2020-04-23] MEDS: MULTIVITAMINS/MINERALS THERAP 1 TAB PO SCH (14:40)
[2020-04-23] MEDS: NS 1,000 ML IV SCH (14:53)
--- NOTE | 2020-04-23 17:22 | ECGEPIP ---
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
[2020-04-23 18:37] LABS: HEMATOCRIT 39.5 % (36.0-47.0); HEMOGLOBIN 12.3 g/dl (12.0-15.5)
[2020-04-23] MEDS: SUCRALFATE 1 GM TAB PO SCH (20:44)
[2020-04-23] MEDS: **NOTE PATIENT COMMENT** MISC XX SCH (20:45)
[2020-04-23 22:00] VITALS: BP 137/74
[2020-04-24] MEDS: NS 1,000 ML IV SCH ×4 (00:28→21:03)
[2020-04-24 00:50] LABS: HEMATOCRIT 37.8 % (36.0-47.0); HEMOGLOBIN 11.7 g/dl (12.0-15.5)
[2020-04-24] MEDS: LEVOTHYROXINE 75MCG TABLET (0.075MG) PO SCH (05:56)
[2020-04-24 06:00] VITALS: BP 133/74
[2020-04-24 06:44] LABS: HEMATOCRIT 36.7 % (36.0-47.0); HEMOGLOBIN 11.7 g/dl (12.0-15.5); MEAN CORPUSCULAR HEMOGLOBIN 29.5 pg (27.0-33.0); MEAN CORPUSCULAR HGB CONC 31.9 g/dl (32.0-36.5); MEAN CORPUSCULAR VOLUME 92.7 fl (80.0-96.0); PLATELET COUNT, AUTOMATED 248 10^3/uL (150-450); RED BLOOD COUNT 3.96 10^6/uL (4.00-5.40); WHITE BLOOD COUNT 7.4 10^3/uL (4.0-10.0)
[2020-04-24 07:09] LABS: ALBUMIN 3.3 GM/DL (3.2-5.2); ALT/SGPT 23 U/L (12-78); BILIRUBIN,TOTAL 0.6 MG/DL (0.2-1.0); BLOOD UREA NITROGEN 9 MG/DL (7-18); CALCIUM LEVEL 8.2 MG/DL (8.8-10.2); CARBON DIOXIDE LEVEL 26 MEQ/L (21-32); CHLORIDE LEVEL 113 MEQ/L (98-107); CREATININE FOR GFR 0.55 MG/DL (0.55-1.30); GLOMERULAR FILTRATION RATE > 60.0 (>32); GLUCOSE, FASTING 109 MG/DL (70-100); MAGNESIUM LEVEL 2.1 MG/DL (1.8-2.4); SODIUM LEVEL 145 MEQ/L (136-145)
[2020-04-24] MEDS: SUCRALFATE 1 GM TAB PO SCH ×2 (09:11→21:00)
[2020-04-24] MEDS: PANTOPRAZOLE 40MG VIAL (C9113 PER 1) IV SCH ×2 (09:11→21:01)
[2020-04-24] MEDS: MULTIVITAMINS/MINERALS THERAP 1 TAB PO SCH (09:12)
[2020-04-24] MEDS: ACETAMINOPHEN TAB 650MG DOSE (2X325MG) PO PRN ×2 (12:53→21:37)
[2020-04-24 13:04] LABS: HEMATOCRIT 37.2 % (36.0-47.0); HEMOGLOBIN 11.7 g/dl (12.0-15.5)
[2020-04-24 14:00] VITALS: BP 135/73
--- NOTE | 2020-04-24 15:25 | IPNPDOC ---
Text Note Date of Service The patient was seen on 04/24/20. NOTE Subjective: No any acute events overnight. Objective: GENERAL APPEARANCE: NAD HEENT: no scleral icterus, no JVD, EOMI CARDIOVASCULAR: S1S2 LUNGS: CTA ABDOMEN: soft & not tender w palpitation MUSCULOSKELETAL: no cyanosis, no swelling INTEGUMENT: no generalized palor NEUROLOGICAL: cranial nerve function from 2-12 intact intact, follows commands, speech not dysarthric Assessment/Plan Patient is 80 years old female with past medical history of hypothyroidism, h ypertension, osteoporosis, sciatica pain presented to the hospital with history of black stool. Patient stated that for past 5 days she has been having daily black stool. She denies any stomach pain, diarrhea, fever. Patient stated that she ibuprofen daily for 1 year and half due to chronic sciatica pain. In ER patient was found to have stool positive for blood, hemoglobin 12.5 with baseline hemoglobin 13.5. Problems (1) GI bleed Most likely upper GI secondary to long therapy with ibuprofen H&H every 6 hours PPI Clear liquid diet EGD will be done tomorrow (2) HTN (hypertension) Lisinopril 20 mg (3) Hypothyroid Continue levothyroxine VS,Fishbone, I+O VS, Fishbone, I+O Laboratory Tests 04/23/20 18:25 04/24/20 00:43 04/24/20 06:32 04/24/20 06:33 04/24/20 12:54 Vital Signs Date Time Temp Pulse Resp B/P (MAP) Pulse Ox O2 Delivery O2 Flow Rate FiO2 04/24/20 09:13 134/71 04/24/20 06:00 97.0 70 17 94 Room Air I&O- Last 24 Hours up to 6 AM 04/24/20 06:00 Intake Total 2740 ml Output Total 250 ml Balance 2490 ml ALISON MATOS DO Apr 24, 2020 15:25
--- NOTE | 2020-04-24 16:17 | CR ---
CONSULTATION DATE: 04/23/2020 REASON FOR CONSULTATION: Anemia/melanotic stools. BRIEF HISTORY OF PRESENT ILLNESS: The patient is an 80-year-old female who presents with a history of melanotic stools. For five days, she has been having some black stools and was found to have a hemoccult positive stool. She has been on some chronic ibuprofen, as well as for some sciatica issues. She does not complain of any reflux symptoms. No indigestion. No history of nausea. No vomiting. No lower GI complaints. No bright red blood per rectum. No personal or family history of colon polyps, colon cancer, ulcerative colitis, or Crohn's disease. She has had a previous colonoscopy about five years ago. PAST MEDICAL HISTORY: 1. Hypothyroidism. 2. Hypertension. 3. Osteoporosis. 4. Vitamin D deficiency. 5. Sciatica. 6. Varicose veins. 7. Degenerative disc disease. 8. Previous breast biopsy. MEDICATIONS: - Synthroid - multivitamin - Prevagen - p.r.n. Colace, ibuprofen, Lidoderm patches, and Dulcolax PHYSICAL EXAMINATION: GENERAL: Reveals an 80-year-old female who looks her stated age. HEENT: Unremarkable. NECK: Supple without adenopathy. LUNGS: Clear to auscultation without crackles, wheezes, or rhonchi. HEART: Regular without murmur. ABDOMEN: Soft, nondistended, and nontender. No guarding, no rebound, and no peritoneal signs are appreciated. IMPRESSION AND PLAN: The patient has some dark stools, hemoccult positive, and with this melanotic stool, I do feel that it is most likely and upper gastrointestinal (GI) bleed. I would recommend continuing her on some proton pump inhibitor (PPI), as well as Carafate, and keep her on a clear liquid diet, but will plan on an upper endoscopy on . We will keep her on clear liquids at this point. Would recommend continuing her on the PPI, Carafate, and current medications. If any increasing pain or discomfort develops, please contact me; but otherwise, we will schedule her for this procedure on my endoscopy day .
[2020-04-24 18:10] LABS: HEMATOCRIT 39.7 % (36.0-47.0)
[2020-04-24] MEDS: **NOTE PATIENT COMMENT** MISC XX SCH (21:00)
[2020-04-24 22:00] VITALS: BP 158/82
[2020-04-25] VITALS (8 sets, daily range): BP systolic 133–160; BP diastolic 70–82
[2020-04-25 00:43] LABS: HEMATOCRIT 33.2 % (36.0-47.0); HEMOGLOBIN 10.3 g/dl (12.0-15.5)
[2020-04-25] MEDS: NS 1,000 ML IV SCH ×3 (04:52→20:36)
[2020-04-25] MEDS: LEVOTHYROXINE 75MCG TABLET (0.075MG) PO SCH (05:49)
[2020-04-25 06:36] LABS: HEMATOCRIT 36.5 % (36.0-47.0); HEMOGLOBIN 11.5 g/dl (12.0-15.5)
[2020-04-25] MEDS: PANTOPRAZOLE 40MG VIAL (C9113 PER 1) IV SCH ×2 (08:10→20:28)
[2020-04-25] MEDS: MULTIVITAMINS/MINERALS THERAP 1 TAB PO SCH (08:42)
[2020-04-25] MEDS: SUCRALFATE 1 GM TAB PO SCH ×2 (08:42→20:28)
[2020-04-25] MEDS ORDERED: BUPIVACAINE HCL 0.25% 10ML VIAL As Ordered ONE (09:27)
[2020-04-25] MEDS ORDERED: SILVER NITRATE APPLICATOR As Ordered ONE (09:27)
[2020-04-25] MEDS ORDERED: LIDOCAINE 2% 100MG/5ML SDV (FOR ANES.) As Ordered ONE (11:40)
[2020-04-25] MEDS ORDERED: propofoL 500 MG/50 ML VIAL As Ordered ONE (11:40)
[2020-04-25] MEDS ORDERED: ONDANSETRON 4MG/2ML VIAL As Ordered ONE (13:29)
--- NOTE | 2020-04-25 13:37 | ROOR ---
Patient Name: Kiesha Causey Procedure Date: 04/25/2020 1:19 PM Date of : 1940 Age: 80 Room: [facility] Gender: Female Note Status: Finalized Procedure: Upper GI endoscopy Indications: Melena Providers: August Lara Jr, MD Referring MD: Taz Winter MD Requesting Provider: Medicines: Propofol per Anesthesia Complications: No immediate complications. Procedure: Pre-Anesthesia Assessment: - Prior to the procedure, a History and Physical was performed, and patient medications and allergies were reviewed. The patient is competent. The risks and benefits of the procedure and the sedation options and risks were discussed with the patient. All questions were answered and informed consent was obtained. Patient identification and proposed procedure were verified by the physician and the nurse in the pre-procedure area and in the procedure room. Mental Status Examination: alert and oriented. Airway Examination: normal oropharyngeal airway and neck mobility. Respiratory Examination: clear to auscultation. CV Examination: normal. ASA Grade Assessment: II - A patient with mild systemic disease. After reviewing the risks and benefits, the patient was deemed in satisfactory condition to undergo the procedure. The anesthesia plan was to use moderate sedation / analgesia (conscious sedation). Immediately prior to administration of medications, the patient was re-assessed for adequacy to receive sedatives. The heart rate, respiratory rate, oxygen saturations, blood pressure, adequacy of pulmonary ventilation, and response to care were monitored throughout the procedure. The physical status of the patient was re-assessed after the procedure. The Endoscope was introduced through the mouth, and advanced to the second part of duodenum. The upper GI endoscopy was accomplished without difficulty. The patient tolerated the procedure well. Findings: The upper third of the esophagus, middle third of the esophagus and lower third of the esophagus were normal. The cardia and gastric fundus were normal. Scattered moderate inflammation characterized by congestion (edema), erosions, erythema and shallow ulcerations was found in the gastric antrum, in the prepyloric region of the stomach and at the pylorus. The duodenal bulb, first portion of the duodenum and second portion of the duodenum were normal. Impression: - Normal upper third of esophagus, middle third of esophagus and lower third of esophagus. - Normal cardia and gastric fundus. - Gastritis. - Normal duodenal bulb, first portion of the duodenum and second portion of the duodenum. - No specimens collected. Recommendation: - Discharge patient to home (ambulatory). - Return to my office in 2 weeks. Procedure Code(s): --- Professional --- 80344, Esophagogastroduodenoscopy, flexible, transoral; diagnostic, including collection of specimen(s) by brushing or washing, when performed (separate procedure) Diagnosis Code(s): --- Professional --- K29.70, Gastritis, unspecified, without bleeding K92.1, Melena (includes Hematochezia) CPT copyright 2019 [employer]. All rights reserved. The codes documented in this report are preliminary and upon equipment maintenance superintendent review may be revised to meet current compliance requirements. August Lara MD August Lara Jr, MD 04/25/2020 1:36:55 PM Electronically signed by Aguust Lara Jr, MD Number of Addenda: 0 Note Initiated On: 04/25/2020 1:19 PM Estimated Blood Loss: Estimated blood loss: none.
[2020-04-25] MEDS: ACETAMINOPHEN TAB 650MG DOSE (2X325MG) PO PRN (15:33)
--- NOTE | 2020-04-25 18:46 | IPNPDOC ---
Text Note Date of Service The patient was seen on 04/25/20. NOTE Subjective: No any acute events overnight. Objective: GENERAL APPEARANCE: NAD HEENT: no scleral icterus, no JVD, EOMI CARDIOVASCULAR: S1S2 LUNGS: CTA ABDOMEN: soft & not tender w palpitation MUSCULOSKELETAL: no cyanosis, no swelling INTEGUMENT: no generalized pallor NEUROLOGICAL: cranial nerve function from 2-12 intact intact, follows commands, speech not dysarthric Assessment/Plan Patient is 80 years old female with past medical history of hypothyroidism, hypertension, osteoporosis, sciatica pain presented to the hospital with history of black stool. Patient stated that for past 5 days she has been having daily black stool. She denies any stomach pain, diarrhea, fever. Patient stated that she ibuprofen daily for 1 year and half due to chronic sciatica pain. In ER patient was found to have stool positive for blood, hemoglobin 12.5 with baseline hemoglobin 13.5. Problems (1) GI bleed Most likely upper GI secondary to long therapy with ibuprofen PPI Clear liquid diet EGD showed Scattered moderate inflammation characterized by congestion (edema), erosions, erythema and shallow ulcerations was found in the gastric antrum, in the prepyloric region of the stomach and at the pylorus. The duodenal bulb, first portion of the duodenum and second portion of the duodenum were normal. (2) HTN (hypertension) Lisinopril 20 mg (3) Hypothyroid Continue levothyroxine VS,Fishbone, I+O VS, Fishbone, I+O Laboratory Tests 04/25/20 00:35 04/25/20 06:16 Vital Signs Date Time Temp Pulse Resp B/P (MAP) Pulse Ox O2 Delivery O2 Flow Rate FiO2 04/25/20 14:40 98.7 92 18 159/70 (99) 95 Room Air I&O- Last 24 Hours up to 6 AM 04/25/20 06:00 Intake Total 2310 ml Output Total 2100 ml Balance 210 ml ALISON MATOS DO Apr 25, 2020 18:46
[2020-04-25] MEDS: **NOTE PATIENT COMMENT** MISC XX SCH (20:29)
[2020-04-26] MEDS: NS 1,000 ML IV SCH (01:44)
[2020-04-26 02:00] VITALS: BP 136/72
[2020-04-26] MEDS: LEVOTHYROXINE 75MCG TABLET (0.075MG) PO SCH (05:31)
[2020-04-26 06:00] VITALS: BP 161/85
[2020-04-26 07:04] LABS: BASO % 0.6 % (0.0-1.0); EOS # 0.3 10^3/uL (0.0-0.5); HEMATOCRIT 35.8 % (36.0-47.0); HEMOGLOBIN 11.2 g/dl (12.0-15.5); LYMPH % 30.9 % (24.0-44.0); MEAN CORPUSCULAR HEMOGLOBIN 28.9 pg (27.0-33.0); MEAN CORPUSCULAR HGB CONC 31.3 g/dl (32.0-36.5); MEAN CORPUSCULAR VOLUME 92.3 fl (80.0-96.0); MONO # 0.7 10^3/uL (0.0-0.8); NEUTROPHILS # 3.4 10^3/uL (1.5-8.5); NEUTROPHILS % 53.2 % (36.0-66.0); PLATELET COUNT, AUTOMATED 226 10^3/uL (150-450); RED BLOOD COUNT 3.88 10^6/uL (4.00-5.40); WHITE BLOOD COUNT 6.5 10^3/uL (4.0-10.0)
[2020-04-26 07:40] LABS: ALBUMIN 3.1 GM/DL (3.2-5.2); ALT/SGPT 25 U/L (12-78); BILIRUBIN,TOTAL 0.5 MG/DL (0.2-1.0); BLOOD UREA NITROGEN 12 MG/DL (7-18); CALCIUM LEVEL 8.3 MG/DL (8.8-10.2); CARBON DIOXIDE LEVEL 28 MEQ/L (21-32); CHLORIDE LEVEL 112 MEQ/L (98-107); GLOMERULAR FILTRATION RATE > 60.0 (>32); GLUCOSE, FASTING 95 MG/DL (70-100); MAGNESIUM LEVEL 2.1 MG/DL (1.8-2.4); POTASSIUM SERUM 3.7 MEQ/L (3.5-5.1); SODIUM LEVEL 144 MEQ/L (136-145); TOTAL PROTEIN 6.1 GM/DL (6.4-8.2)
[2020-04-26] MEDS: PANTOPRAZOLE 40MG VIAL (C9113 PER 1) IV SCH ×2 (10:05→20:46)
[2020-04-26] MEDS: SUCRALFATE 1 GM TAB PO SCH ×2 (10:06→20:19)
[2020-04-26] MEDS: MULTIVITAMINS/MINERALS THERAP 1 TAB PO SCH (10:09)
[2020-04-26] MEDS ORDERED: OMEP40CA97 PO (12:36)
[2020-04-26] MEDS ORDERED: LISI20TA33 PO (12:36)
[2020-04-26] MEDS ORDERED: SUCR1TA PO (12:36)
[2020-04-26 14:00] VITALS: BP 141/88
[2020-04-26 16:28] LABS: HEMATOCRIT 32.5 % (36.0-47.0); HEMOGLOBIN 10.4 g/dl (12.0-15.5)
--- NOTE | 2020-04-26 18:46 | IPNPDOC ---
Text Note Date of Service The patient was seen on 04/26/20. NOTE Subjective: Patient and plans of abdominal pain and she had a large bowel mov ement with some clots. She concern about bleeding. I explained patient that after EGD she can have clots in her stool for a few days Objective: GENERAL APPEARANCE: NAD HEENT: no scleral icterus, no JVD, EOMI CARDIOVASCULAR: S1S2 LUNGS: CTA ABDOMEN: soft & not tender w palpitation MUSCULOSKELETAL: no cyanosis, no swelling INTEGUMENT: no generalized pallor NEUROLOGICAL: cranial nerve function from 2-12 intact intact, follows commands, speech not dysarthric Assessment/Plan Patient is 80 years old female with past medical history of hypothyroidism, hypertension, osteoporosis, sciatica pain presented to the hospital with history of black stool. Patient stated that for past 5 days she has been having daily black stool. She denies any stomach pain, diarrhea, fever. Patient stated that she ibuprofen daily for 1 year and half due to chronic sciatica pain. In ER patient was found to have stool positive for blood, hemoglobin 12.5 with baseline hemoglobin 13.5. Problems (1) GI bleed Most likely upper GI secondary to long therapy with ibuprofen PPI Regular diet EGD showed Scattered moderate inflammation characterized by congestion (edema), erosions, erythema and shallow ulcerations was found in the gastric antrum, in the prepyloric region of the stomach and at the pylorus. The duodenal bulb, first portion of the duodenum and second portion of the duodenum were normal. (2) HTN (hypertension) Lisinopril 20 mg (3) Hypothyroid Continue levothyroxine VS,Fishbone, I+O VS, Fishbone, I+O Laboratory Tests 04/26/20 06:44 04/26/20 16:19 Vital Signs Date Time Temp Pulse Resp B/P (MAP) Pulse Ox O2 Delivery O2 Flow Rate FiO2 04/26/20 14:00 97.4 113 12 141/88 (105) 96 Room Air I&O- Last 24 Hours up to 6 AM 04/26/20 05:59 Intake Total 2310 ml Output Total 1300 ml Balance 1010 ml ALISON MATOS DO Apr 26, 2020 18:46
[2020-04-26] MEDS: **NOTE PATIENT COMMENT** MISC XX SCH (21:00)
[2020-04-26 21:49] LABS: HEMATOCRIT 30.2 % (36.0-47.0); HEMOGLOBIN 9.6 g/dl (12.0-15.5)
[2020-04-26 22:00] VITALS: BP 126/73
[2020-04-27 03:30] LABS: HEMATOCRIT 28.7 % (36.0-47.0)
[2020-04-27] MEDS: LEVOTHYROXINE 75MCG TABLET (0.075MG) PO SCH (05:45)
[2020-04-27 06:00] VITALS: BP 132/74
[2020-04-27 06:27] LABS: HEMOGLOBIN 9.4 g/dl (12.0-15.5)
[2020-04-27 06:32] LABS: BASO % 0.6 % (0.0-1.0); EOS # 0.3 10^3/uL (0.0-0.5); EOS % 4.2 % (0.0-3.0); HEMOGLOBIN 9.4 g/dl (12.0-15.5); LYMPH # 2.2 10^3/uL (1.5-5.0); LYMPH % 32.1 % (24.0-44.0); MEAN CORPUSCULAR HEMOGLOBIN 29.3 pg (27.0-33.0); MEAN CORPUSCULAR HGB CONC 32.4 g/dl (32.0-36.5); MEAN CORPUSCULAR VOLUME 90.3 fl (80.0-96.0); MONO # 0.7 10^3/uL (0.0-0.8); MONO % 9.6 % (0.0-5.0); NEUTROPHILS # 3.7 10^3/uL (1.5-8.5); NEUTROPHILS % 53.2 % (36.0-66.0); PLATELET COUNT, AUTOMATED 217 10^3/uL (150-450); RED BLOOD COUNT 3.21 10^6/uL (4.00-5.40)
[2020-04-27 06:59] LABS: ALBUMIN 3.1 GM/DL (3.2-5.2); ALT/SGPT 26 U/L (12-78); BILIRUBIN,TOTAL 0.4 MG/DL (0.2-1.0); BLOOD UREA NITROGEN 15 MG/DL (7-18); CALCIUM LEVEL 8.2 MG/DL (8.8-10.2); CARBON DIOXIDE LEVEL 25 MEQ/L (21-32); CHLORIDE LEVEL 111 MEQ/L (98-107); CREATININE FOR GFR 0.62 MG/DL (0.55-1.30); GLOMERULAR FILTRATION RATE > 60.0 (>32); GLUCOSE, FASTING 100 MG/DL (70-100); POTASSIUM SERUM 4.1 MEQ/L (3.5-5.1); SODIUM LEVEL 144 MEQ/L (136-145); TOTAL PROTEIN 5.7 GM/DL (6.4-8.2)
[2020-04-27] MEDS: SUCRALFATE 1 GM TAB PO SCH ×2 (09:32→21:13)
[2020-04-27] MEDS: OMEPRAZOLE 20 MG CAP PO SCH (09:32)
[2020-04-27] MEDS: MULTIVITAMINS/MINERALS THERAP 1 TAB PO SCH (09:32)
[2020-04-27 09:36] VITALS: BP 173/69
[2020-04-27] MEDS ORDERED: MAGNESIUM CITRATE 300 ML BTL PO ONE (14:00)
[2020-04-27] MEDS ORDERED: MOM 30ML SUSPENSION UDC PO ONE (14:00)
[2020-04-27] MEDS: DOCUSATE SODIUM 100MG CAPSULE PO SCH ×2 (14:37→21:00)
--- NOTE | 2020-04-27 14:59 | IPN ---
PROGRESS NOTE DATE: 04/27/2020 Patient has had some bleeding that has persisted overnight. She states that she has had some more episodes of bright red blood per rectum, however, her hematocrit has stayed stable suggesting that this may not be a significant bleed, but still bright red blood is what she is describing, suggesting much more of a lower gastrointestinal (GI) etiology now instead of the previously concerning melanotic stool that she had which may have been upper GI related and may have indeed two sources. In any case, her abdomen is soft, nontender. IMPRESSION/PLAN: Patient has lower gastrointestinal (GI) bleeding of undetermined etiology, most likely diverticular bleeding given her previous history and her previous colonoscopy by GI. At this point, the primary would like me to proceed with a colonoscopy while she is inpatient and thus will order a bowel prep for her and plan on a colonoscopy tomorrow. Patient understands and would like to proceed with this prior to discharge.
--- NOTE | 2020-04-27 14:59 | IPN ---
PROGRESS NOTE DATE: 04/26/2020 Patient was to be discharged home today, however, had some bright red blood per rectum and was awaiting some followup labs prior to being discharged. She had a hematocrit settle out at 36 and then dropped down to about 30. She has not had any nausea, no vomiting, the bright red blood per rectum is what occurs, it is not melanotic stool anymore, she has had no fevers or chills, no diarrhea associated with this, it is relatively edenilson with occasional bright red blood. Her upper endoscopy showed some old healing ulcers but really no evidence of acute ongoing bleeding. Her abdomen is soft, nontender, nondistended. IMPRESSION/PLAN: Patient had gastrointestinal (GI) bleeding with bright red blood that sounds as though it is more likely to be a lower GI, I am not sure why it originally presented with dark stool unless it was in the cecum or small bowel, but in any case, at this point she may have multiple etiologies for her anemia issue. At this point, if her hematocrit stays low then it is reasonable either to proceed with an outpatient colonoscopy or to proceed with a colonoscopy while she is here in the hospital. However, if it is in the small bowel we will not be able to see this unless we perform a bleeding scan which we do not have available on weekends, or angiography, once again which we do not have available on weekends, or push enteroscopy, i.e., not available at this hospital. Thus, we will see what we can do for her depending on whether she continues to bleed or not.
--- NOTE | 2020-04-27 15:33 | IPNPDOC ---
Text Note Date of Service The patient was seen on 04/27/20. NOTE Subjective: Patient developed stool with red bright blood in the morning. Objective: GENERAL APPEARANCE: NAD HEENT: no scleral icterus, no JVD, EOMI CARDIOVASCULAR: S1S2 LUNGS: CTA ABDOMEN: soft & not tender w palpitation MUSCULOSKELETAL: no cyanosis, no swelling INTEGUMENT: no generalized pallor NEUROLOGICAL: cranial nerve function from 2-12 intact intact, follows commands, speech not dysarthric Assessment/Plan Patient is 80 years old female with past medical history of hypothyroidism, hypertension, osteoporosis, sciatica pain presented to the hospital with history of black stool. Patient stated that for past 5 days she has been having daily black stool. She denies any stomach pain, diarrhea, fever. Patient stated that she ibuprofen daily for 1 year and half due to chronic sciatica pain. In ER patient was found to have stool positive for blood, hemoglobin 12.5 with baseline hemoglobin 13.5. Problems (1) GI bleed Most likely upper GI secondary to long therapy with ibuprofen PPI Regular diet EGD showed Scattered moderate inflammation characterized by congestion (edema), erosions, erythema and shallow ulcerations was found in the gastric antrum, in the prepyloric region of the stomach and at the pylorus. The duodenal bulb, first portion of the duodenum and second portion of the duodenum were normal. However, patient developed stool with red bright blood in the morning most likely secondary to diverticulosis which was found in previous colonoscopy. Will proceed with colonoscopy (2) HTN (hypertension) Increase the dose of lisinopril to 40 mg for better control (3) Hypothyroid Continue levothyroxine VS,Fishbone, I+O VS, Fishbone, I+O Laboratory Tests 04/26/20 16:19 04/26/20 21:31 04/27/20 03:25 04/27/20 06:07 Vital Signs Date Time Temp Pulse Resp B/P (MAP) Pulse Ox O2 Delivery O2 Flow Rate FiO2 04/27/20 09:36 173/69 04/27/20 06:00 98.5 68 17 96 Room Air I&O- Last 24 Hours up to 6 AM 04/27/20 06:00 Intake Total 1270 ml Output Total 750 ml Balance 520 ml ALISON MATOS DO Apr 27, 2020 15:33
[2020-04-27 15:41] LABS: HEMATOCRIT 31.3 % (36.0-47.0); HEMOGLOBIN 10.2 g/dl (12.0-15.5)
[2020-04-27 16:00] VITALS: BP 156/89
[2020-04-27] MEDS: **NOTE PATIENT COMMENT** MISC XX SCH (21:00)
[2020-04-27 21:48] LABS: HEMATOCRIT 31.1 % (36.0-47.0)
[2020-04-27 22:00] VITALS: BP 161/72
[2020-04-28 05:41] LABS: BASO % 0.4 % (0.0-1.0); EOS # 0.3 10^3/uL (0.0-0.5); EOS % 4.4 % (0.0-3.0); HEMATOCRIT 31.3 % (36.0-47.0); HEMOGLOBIN 9.8 g/dl (12.0-15.5); LYMPH % 27.6 % (24.0-44.0); MEAN CORPUSCULAR HEMOGLOBIN 28.8 pg (27.0-33.0); MEAN CORPUSCULAR HGB CONC 31.3 g/dl (32.0-36.5); MEAN CORPUSCULAR VOLUME 92.1 fl (80.0-96.0); MONO # 0.7 10^3/uL (0.0-0.8); NEUTROPHILS # 4.2 10^3/uL (1.5-8.5); NEUTROPHILS % 57.3 % (36.0-66.0); PLATELET COUNT, AUTOMATED 236 10^3/uL (150-450); WHITE BLOOD COUNT 7.3 10^3/uL (4.0-10.0)
[2020-04-28 06:00] VITALS: BP 106/68
[2020-04-28] MEDS: LEVOTHYROXINE 75MCG TABLET (0.075MG) PO SCH (06:00)
[2020-04-28 06:11] LABS: ALBUMIN 3.3 GM/DL (3.2-5.2); ALT/SGPT 28 U/L (12-78); BILIRUBIN,TOTAL 0.5 MG/DL (0.2-1.0); BLOOD UREA NITROGEN 12 MG/DL (7-18); CALCIUM LEVEL 8.4 MG/DL (8.8-10.2); CARBON DIOXIDE LEVEL 29 MEQ/L (21-32); CHLORIDE LEVEL 111 MEQ/L (98-107); CREATININE FOR GFR 0.58 MG/DL (0.55-1.30); GLOMERULAR FILTRATION RATE > 60.0 (>32); GLUCOSE, FASTING 105 MG/DL (70-100); MAGNESIUM LEVEL 2.5 MG/DL (1.8-2.4); POTASSIUM SERUM 3.7 MEQ/L (3.5-5.1); SODIUM LEVEL 146 MEQ/L (136-145); TOTAL PROTEIN 6.1 GM/DL (6.4-8.2)
[2020-04-28] MEDS ORDERED: propofoL 200 MG/20 ML VIAL As Ordered ONE ×3 (08:29→09:28)
[2020-04-28] MEDS ORDERED: LIDOCAINE 2% 100MG/5ML SDV (FOR ANES.) As Ordered ONE (08:29)
[2020-04-28] MEDS ORDERED: ONDANSETRON 4MG/2ML VIAL As Ordered ONE (08:33)
[2020-04-28] MEDS ORDERED: LR 1,000 ML IV SCH (10:00)
[2020-04-28 10:25] VITALS: BP 140/71
[2020-04-28] MEDS: SUCRALFATE 1 GM TAB PO SCH ×2 (10:34→20:39)
[2020-04-28] MEDS: OMEPRAZOLE 20 MG CAP PO SCH (10:34)
[2020-04-28] MEDS: DOCUSATE SODIUM 100MG CAPSULE PO SCH ×2 (10:34→20:39)
[2020-04-28] MEDS: lisinopriL 40 MG TAB PO SCH (10:34)
[2020-04-28] MEDS: MULTIVITAMINS/MINERALS THERAP 1 TAB PO SCH (10:34)
[2020-04-28 10:44] VITALS: BP 152/73
--- NOTE | 2020-04-28 11:42 | IPNPDOC ---
Text Note Date of Service The patient was seen on 04/28/20. NOTE Subjective: No any acute events, patient continues to have bloody stool Objective: GENERAL APPEARANCE: NAD HEENT: no scleral icterus, no JVD, EOMI CARDIOVASCULAR: S1S2 LUNGS: CTA ABDOMEN: soft & not tender w palpitation MUSCULOSKELETAL: no cyanosis, no swelling INTEGUMENT: no generalized pallor NEUROLOGICAL: cranial nerve function from 2-12 intact intact, follows commands, speech not dysarthric Assessment/Plan Patient is 80 years old female with past medical history of hypothyroidism, hypertension, osteoporosis, sciatica pain presented to the hospital with history of black stool. Patient stated that for past 5 days she has been having daily black stool. She denies any stomach pain, diarrhea, fever. Patient stated that she ibuprofen daily for 1 year and half due to chronic sciatica pain. In ER patient was found to have stool positive for blood, hemoglobin 12.5 with baseline hemoglobin 13.5. Problems (1) GI bleed Most likely upper GI secondary to long therapy with ibuprofen PPI EGD showed Scattered moderate inflammation characterized by congestion (edema), erosions, erythema and shallow ulcerations was found in the gastric antrum, in the prepyloric region of the stomach and at the pylorus. The duodenal bulb, first portion of the duodenum and second portion of the duodenum were normal. However, patient developed stool with red bright blood most likely secondary to diverticulosis which was found in previous colonoscopy. Colonoscopy was done on 04/28/20, Dr. Lara found diverticulosis throughout the colon, no active bleeding We will continue clear liquid diet (2) HTN (hypertension) Increase the dose of lisinopril to 40 mg for better control (3) Hypothyroid Continue levothyroxine VS,Fishbone, I+O VS, Fishbone, I+O Laboratory Tests 04/27/20 15:32 04/27/20 21:33 04/28/20 05:29 Vital Signs Date Time Temp Pulse Resp B/P (MAP) Pulse Ox O2 Delivery O2 Flow Rate FiO2 04/28/20 10:44 97.1 68 16 152/73 (99) 98 Room Air 04/28/20 10:00 2 I&O- Last 24 Hours up to 6 AM 04/28/20 06:00 Intake Total 1050 ml Output Total 1200 ml Balance -150 ml ALISON MATOS DO Apr 28, 2020 11:42
[2020-04-28 11:48] LABS: HEMATOCRIT 30.3 % (36.0-47.0); HEMOGLOBIN 9.7 g/dl (12.0-15.5)
[2020-04-28] MEDS ORDERED: PHENYLephrine 500MCG 5ML (100MCG/ML) SYRINGE As Ordered ONE (13:07)
[2020-04-28 13:23] VITALS: BP_SYST 141; BP_SYST 98; BP_DIAS 64; BP_DIAS 67
[2020-04-28] MEDS: ACETAMINOPHEN TAB 650MG DOSE (2X325MG) PO PRN (18:26)
[2020-04-28 19:56] LABS: HEMATOCRIT 30.2 % (36.0-47.0); HEMOGLOBIN 9.2 g/dl (12.0-15.5)
[2020-04-28] MEDS: **NOTE PATIENT COMMENT** MISC XX SCH (20:22)
[2020-04-28 22:00] VITALS: BP 106/57
[2020-04-29 01:51] LABS: HEMATOCRIT 28.4 % (36.0-47.0)
[2020-04-29] MEDS: LEVOTHYROXINE 75MCG TABLET (0.075MG) PO SCH (05:53)
[2020-04-29 05:59] LABS: BASO % 0.3 % (0.0-1.0); EOS # 0.3 10^3/uL (0.0-0.5); EOS % 5.4 % (0.0-3.0); HEMATOCRIT 29.8 % (36.0-47.0); HEMOGLOBIN 9.2 g/dl (12.0-15.5); LYMPH # 2.2 10^3/uL (1.5-5.0); LYMPH % 35.9 % (24.0-44.0); MEAN CORPUSCULAR HEMOGLOBIN 28.7 pg (27.0-33.0); MEAN CORPUSCULAR HGB CONC 30.9 g/dl (32.0-36.5); MEAN CORPUSCULAR VOLUME 92.8 fl (80.0-96.0); MONO # 0.6 10^3/uL (0.0-0.8); MONO % 9.9 % (0.0-5.0); NEUTROPHILS # 2.9 10^3/uL (1.5-8.5); NEUTROPHILS % 48.3 % (36.0-66.0); PLATELET COUNT, AUTOMATED 236 10^3/uL (150-450); RED BLOOD COUNT 3.21 10^6/uL (4.00-5.40); WHITE BLOOD COUNT 6.1 10^3/uL (4.0-10.0)
[2020-04-29 06:00] VITALS: BP 130/60
[2020-04-29 06:37] LABS: ALT/SGPT 26 U/L (12-78); BILIRUBIN,TOTAL 0.4 MG/DL (0.2-1.0); BLOOD UREA NITROGEN 10 MG/DL (7-18); CALCIUM LEVEL 8.3 MG/DL (8.8-10.2); CARBON DIOXIDE LEVEL 29 MEQ/L (21-32); CHLORIDE LEVEL 112 MEQ/L (98-107); CREATININE FOR GFR 0.53 MG/DL (0.55-1.30); GLOMERULAR FILTRATION RATE > 60.0 (>32); GLUCOSE, FASTING 86 MG/DL (70-100); MAGNESIUM LEVEL 2.3 MG/DL (1.8-2.4); POTASSIUM SERUM 3.7 MEQ/L (3.5-5.1); SODIUM LEVEL 146 MEQ/L (136-145); TOTAL PROTEIN 5.5 GM/DL (6.4-8.2)
[2020-04-29] MEDS: DOCUSATE SODIUM 100MG CAPSULE PO SCH (08:27)
[2020-04-29] MEDS: lisinopriL 40 MG TAB PO SCH (08:27)
[2020-04-29] MEDS: SUCRALFATE 1 GM TAB PO SCH (08:27)
[2020-04-29] MEDS: MULTIVITAMINS/MINERALS THERAP 1 TAB PO SCH (08:27)
[2020-04-29] MEDS: OMEPRAZOLE 20 MG CAP PO SCH (08:27)
[2020-04-29 08:33] LABS: HEMATOCRIT 31.7 % (36.0-47.0)
--- NOTE | 2020-04-29 08:59 | IPN ---
PROGRESS NOTE DATE: 04/29/2020 The patient's hematocrit has been stable overnight. She has not had any bowel movement since yesterday's colonoscopy where we found blood throughout the colon, had extensive diverticulosis throughout the colon but no specific area of bleeding was identified. The small bowel was visualized/terminal ileum was visualized and I did not see any blood in this suggesting that the blood/bleeding was contained to the colon with the most likely diagnosis of diverticulosis. As of this time it appears that the diverticular bleed has stopped and recommendation is that we progress her diet. If she tolerates this and she does not have any bright red blood per rectum then I would recommend outpatient evaluation/discharge to home.
--- NOTE | 2020-04-29 12:38 | DS.PDOC ---
Discharge Summary General Date of Admission Apr 23, 2020 at 11:58 Date of Discharge 04/29/20 Discharge Summary PROCEDURES PERFORMED DURING STAY: [None]. ADMITTING DIAGNOSES: GI bleed HTN (hypertension) Hypothyroid DISCHARGE DIAGNOSES: GI bleed HTN (hypertension) Hypothyroid COMPLICATIONS/CHIEF COMPLAINT: Gi Bleed. HISTORY OF PRESENT ILLNESS: Patient is 80 years old female with past medical history of hypothyroidism, hypertension, osteoporosis, sciatica pain presented to the hospital with history of black stool. Patient stated that for past 5 days she has been having daily black stool. She denies any stomach pain, diarrhea, fever. Patient stated that she ibuprofen daily for 1 year and half due to chronic sciatica pain. In ER patient was found to have stool positive for blood, hemoglobin 12.5 with baseline hemoglobin 13.5. HOSPITAL COURSE: During hospital stay the following issue addressed DISCHARGE MEDICATIONS: Please see below. ALLERGIES: Please see below. PHYSICAL EXAMINATION ON DISCHARGE: VITAL SIGNS: Please see below. (1) GI bleed Most likely upper GI secondary to long therapy with ibuprofen PPI EGD showed Scattered moderate inflammation characterized by congestion (edema), erosions, erythema and shallow ulcerations was found in the gastric antrum, in the prepyloric region of the stomach and at the pylorus. The duodenal bulb, first portion of the duodenum and second portion of the duodenum were normal. However, patient developed stool with red bright blood most likely secondary to diverticulosis which was found in previous colonoscopy. Colonoscopy was done on 04/28/20, Dr. Lara found diverticulosis throughout the colon, no active bleeding (2) HTN (hypertension) Increase the dose of lisinopril to 40 mg for better control (3) Hypothyroid Continue levothyroxine LABORATORY DATA: Please see below. IMAGING: [facility] NAME: ADA AMBROCIO DATE OF : 1940 AGE: 80 SEX: F REPORT #: [id number] ROOM: ED INP TECHNOLOGIST: ALLEN DOCTOR: WILLIE FONTENOT PAC Ordered for Date&Time: 04/23/20 0992 cc: [~ rep ct ivnm] Service Date&Time: 04/23/20 1313 This report is in Signed status. If this report is in a DRAFT status it has not yet been reviewed by the radiologist for accuracy. Thank you for having your radiology procedures performed at [facility] RADIOLOGY REPORT Date&Time printed: [~ rep prt dt last] [~ rep prt tm last] Page 2 of [address] [address] RADIOLOGY REPORT This report is in Signed status. If this report is in a DRAFT status it has not yet been reviewed by the radiologist for accuracy. Thank you for having your radiology procedures performed at [facility] RADIOLOGY REPORT Date&Time printed: [~ rep prt dt last] [~ rep prt tm last] Page 1 of 1 COMPARISON: None. TECHNIQUE: CT Scan of the abdomen and pelvis was performed with intravenous administration of 100 cc of Isovue 370, without oral contrast. FINDINGS: Lung bases: There is a small hiatal hernia. No infiltrate is seen. Liver: Multiple cysts are scattered throughout the liver measuring up to 4 cm in diameter. A cyst in the posterior segment of the right lobe demonstrates a heavily calcified wall. Gallbladder: Unremarkable. Spleen: Normal. Adrenals: There is mild thickening of the left adrenal gland. Pancreas: Normal. Kidneys: There are small cysts seen in each kidney. There is no hydrone phrosis. Small and large bowel: There are multiple diverticula throughout the colon. There is no definite evidence of acute diverticulitis. Free fluid: None. Abdominal aorta: No aneurysm or dissection. Adenopathy: None. Appendix: Not inflamed. Osseous structures: There are degenerative changes of the spine without compression deformity. Pelvis: No mass. IMPRESSION: Small hiatal hernia. Multiple diverticula seen throughout the colon without evidence for acute diverticulitis. No free air or free fluid. <Electronically signed by Francis Tariq > 04/23/20 1402 DD: Francis Tariq MD, MD 04/23/20 1352 DT: JIGNESH 04/23/20 1402 DS: CHARLES 04/23/20 1352 04/23/20 1352 [~ rep ct labl] PROGNOSIS: Fair ACTIVITY: [As tolerated]. DIET: Cardiac DISCHARGE PLAN: Home ITEMS TO FOLLOWUP ON ON OUTPATIENT: Follow-up with Dr. Lara in 3-5 days, with PCP in one to days DISCHARGE CONDITION: [Stable]. TIME SPENT ON DISCHARGE: Greater than 40 minutes. Vital Signs/I&Os Vital Signs Date Time Temp Pulse Resp B/P (MAP) Pulse Ox O2 Delivery O2 Flow Rate FiO2 04/29/20 06:00 98.1 70 20 130/60 (83) 95 04/28/20 13:23 Room Air 04/28/20 10:00 2 I&O- Last 24 Hours up to 6 AM 04/29/20 06:00 Intake Total 1040 ml Output Total 1300 ml Balance -260 ml Laboratory Data Labs 24H Laboratory Tests 2 04/29/20 05:32: Immature Granulocyte % (Auto) 0.2, Neutrophils (%) (Auto) 48.3, Lymphocytes (%) (Auto) 35.9, Monocytes (%) (Auto) 9.9H, Eosinophils (%) (Auto) 5.4H, Basophils (%) (Auto) 0.3, Neutrophils # (Auto) 2.9, Lymphocytes # (Auto) 2.2, Monocytes # (Auto) 0.6, Eosinophils # (Auto) 0.3, Basophils # (Auto) 0.0, Nucleated Red Blood Cells % (auto) 0.0, Anion Gap 5L, Glomerular Filtration Rate > 60.0, Calcium Level 8.3L, Magnesium Level 2.3, Total Bilirubin 0.4, Aspartate Amino Transf (AST/SGOT) 13, Alanine Aminotransferase (ALT/SGPT) 26, Alkaline Phosphatase 43L, Total Protein 5.5L, Albumin 3.0L, Albumin/Globulin Ratio 1.2 CBC/BMP Laboratory Tests 04/28/20 19:45 04/29/20 01:46 04/29/20 05:32 04/29/20 08:09 Microbiology Microbiology 04/23/20 Urine Culture - Final, Complete Escherichia Coli Discharge Medications Scheduled Levothyroxine Sodium (Levothyroxine Sodium) 75 Mcg Tab, 75 MCG PO DAILY, (Reported) Lisinopril (Lisinopril) 20 Mg Tablet, 20 MG PO DAILY Multivitamins (Thera M Plus Tablet) 1 Each Tablet, 1 TAB PO DAILY, (Reported) Omeprazole (Omeprazole) 40 Mg Capsule.dr, 40 MG PO DAILY Sucralfate (Sucralfate) 1 Gm Tablet, 1 GM PO BID [Prevagen] , 1 TAB PO DAILY, (Reported) Scheduled PRN Bisacodyl (Dulcolax) 5 Mg Tab, 5 MG PO DAILY PRN for CONSTIPATION, (Reported) Docusate Sodium (Colace) 100 Mg Cap, 100 MG PO BID PRN for CONSTIPATION, (Reported) Lidocaine (Lidoderm) 5 % Dis, 3 PATCH TOP DAILY PRN for PAIN, (Reported) APPLY TO LOWER BACK Allergies Coded Allergies: Sulfa (Sulfonamide Antibiotics) (Verified Allergy, Mild, 04/23/20) rash ALISON MATOS DO Apr 29, 2020 12:38
[2020-04-29 14:00] VITALS: BP 143/72
[2020-04-29 14:29] LABS: HEMATOCRIT 32.9 % (36.0-47.0); HEMOGLOBIN 10.4 g/dl (12.0-15.5)
--- NOTE | 2020-05-06 13:31 | RO ---
OPERATIVE NOTE DATE OF OPERATION: 04/28/2020 PREOPERATIVE DIAGNOSIS: Gastrointestinal bleed. POSTOPERATIVE DIAGNOSIS: Gastrointestinal bleed, probable diverticular bleed. PROCEDURE: Colonoscopy. SURGEON: Dr. August Lara ANESTHESIA: Propofol anesthesia. ESTIMATED BLOOD LOSS: None. BRIEF PROCEDURE SUMMARY: The patient was brought to the operating room and was placed in the lateral decubitus position. The patient had been given bowel prep the night before, but still had a significant amount of bloody stool with some fecaliths associated with the diverticulosis that she has. In any case, the colonoscope was inserted through the rectum and irrigation was performed throughout the colon. Going through the sigmoid colon, there was blood in the sigmoid colon, descending colon, transverse colon. When I got over to the right colon, there was less blood, but there was still a little bit within the cecum itself. After intubation of the terminal ileum, I did not see any evidence of blood within the small bowel itself, nothing for a little distance in the small bowel. The scope was brought back into the cecum again, and after I had irrigated out the cecum until it was clear, there was no further blood that seemed to pool in this side, gradually going down into the transverse colon and descending colon after irrigation, I went back up into the cecum, and again revealed no active bleeding. The right colon revealed no active bleeding or in the transverse colon, but there was blood present throughout the colon with diverticulosis that was scattered throughout the colon. The patient had pandiverticulosis. It was worse in the sigmoid colon, but (1) I did not find any specific bleeding source, and (2) there was no evidence of specific clot within the diverticulum itself. I did not find any masses. Unfortunately, there was enough stool up against the sidewalls, that a small AV malformation may have been missed, but given the extensive diverticulosis, it is most likely that this was a diverticular bleed and the diverticular bleed may have been anywhere from the cecum, right colon, or transverse colon. It seems unlikely that there would be retrograde blood going from the sigmoid colon up to that area, but it is hard to know at this point. It is also possible that the small bowel had cleared all of its blood prior to the endoscopy. Thus, at this point, although it seems as thought the most likely etiology is a diverticular bleed, if the patient has ongoing bleeding throughout the day or overnight or recurrence of bleeding, I would recommend angiographic evaluation, possible embolization if necessary. Given that this is the weekend and if she has active bleeding appreciated during the day, she may need a transfer out of the facility if she is significantly bleeding.
== END 2020-04-29 15:13 | disposition home or self-care (01) | DRG 379 ==
LOC: M ED 09:20 → M ED INP 11:58 → M MSPAV 14:26
PROVIDERS: ADMIT Internal Medicine; ATTEND Internal Medicine
PROC: 0DJ08ZZ Inspection of Upper Intestinal Tract, Via Natural or Artificial Opening Endoscopic (ICD-10-PCS; principal; 2020-04-25 13:30)
PROC: 0DJD8ZZ Inspection of Lower Intestinal Tract, Via Natural or Artificial Opening Endoscopic (ICD-10-PCS; 2020-04-28)
DX: K57.31 Diverticulosis of large intestine without perforation or abscess with bleeding (principal); K57.11 Diverticulosis of small intestine without perforation or abscess with bleeding; E03.9 Hypothyroidism, unspecified; I10 Essential (primary) hypertension; M81.0 Age-related osteoporosis without current pathological fracture; E55.9 Vitamin D deficiency, unspecified; M54.41 Lumbago with sciatica, right side; K29.70 Gastritis, unspecified, without bleeding; M54.42 Lumbago with sciatica, left side; K25.9 Gastric ulcer, unspecified as acute or chronic, without hemorrhage or perforation; I83.90 Asymptomatic varicose veins of unspecified lower extremity; M51.36 Other intervertebral disc degeneration, lumbar region; Z79.1 Long term (current) use of non-steroidal anti-inflammatories (NSAID); Z79.899 Other long term (current) drug therapy; Z88.2 Allergy status to sulfonamides

== ENCOUNTER → 2020-07-02 | Outpatient (REF) | payer MEDICARE ==
[~2020-07-02] MED LIST changes: +IBUP-1022 PO; +LISI20TA33 PO; +OMEP40CA97 PO; +PREVAGEN PO; +SUCR1TA PO; +VITMTA PO; +prevagen
[2020-07-02 17:27] LABS: HEMATOCRIT 39.7 % (36.0-47.0); HEMOGLOBIN 12.2 g/dl (12.0-15.5); MEAN CORPUSCULAR HEMOGLOBIN 26.9 pg (27.0-33.0); MEAN CORPUSCULAR HGB CONC 30.7 g/dl (32.0-36.5); MEAN CORPUSCULAR VOLUME 87.6 fl (80.0-96.0); PLATELET COUNT, AUTOMATED 286 10^3/uL (150-450); RED BLOOD COUNT 4.53 10^6/uL (4.00-5.40); WHITE BLOOD COUNT 8.6 10^3/uL (4.0-10.0)
[2020-07-02 18:05] LABS: ALBUMIN 3.8 GM/DL (3.2-5.2); ALT/SGPT 27 U/L (12-78); BILIRUBIN,TOTAL 0.3 MG/DL (0.2-1.0); BLOOD UREA NITROGEN 19 MG/DL (7-18); CALCIUM LEVEL 8.9 MG/DL (8.8-10.2); CARBON DIOXIDE LEVEL 29 MEQ/L (21-32); CHLORIDE LEVEL 109 MEQ/L (98-107); CREATININE FOR GFR 0.61 MG/DL (0.55-1.30); FERRITIN 21 NG/ML (8-252); FREE T4 1.16 NG/DL (0.76-1.46); GLOMERULAR FILTRATION RATE > 60.0 (>32); GLUCOSE, FASTING 80 MG/DL (70-100); IRON (FE) 31 UG/DL (50-170); PERCENT SATURATION 8.5 % (13.2-45.0); POTASSIUM SERUM 4.1 MEQ/L (3.5-5.1); SODIUM LEVEL 143 MEQ/L (136-145); TOTAL IRON BINDING CAPACITY 364 UG/DL (250-450); TOTAL PROTEIN 7.4 GM/DL (6.4-8.2)
== END ==
LOC: M SFHCADAM 16:02
PROVIDERS: ATTEND Family Medicine
DX: E03.9 Hypothyroidism, unspecified (principal); Z87.19 Personal history of other diseases of the digestive system
CPT/HCPCS: 80053; 82728; 83550; 84439; 84443; 85027; 85046; G0463

== ENCOUNTER → 2021-07-10 | Outpatient (REF) | payer MEDICARE ==
[~2021-07-10] MED LIST changes: +OMEP40CA4 PO; -OMEP40CA97 PO
[2021-07-10 12:33] LABS: HEMATOCRIT 42.9 % (36.0-47.0); HEMOGLOBIN 13.7 g/dl (12.0-15.5); MEAN CORPUSCULAR HEMOGLOBIN 28.8 pg (27.0-33.0); MEAN CORPUSCULAR HGB CONC 31.9 g/dl (32.0-36.5); MEAN CORPUSCULAR VOLUME 90.3 fl (80.0-96.0); PLATELET COUNT, AUTOMATED 280 10^3/uL (150-450); RED BLOOD COUNT 4.75 10^6/uL (4.00-5.40); WHITE BLOOD COUNT 7.3 10^3/uL (4.0-10.0)
[2021-07-10 13:57] LABS: ALBUMIN 3.8 GM/DL (3.2-5.2); ALT/SGPT 30 U/L (12-78); BILIRUBIN,TOTAL 0.7 MG/DL (0.2-1.0); BLOOD UREA NITROGEN 15 MG/DL (7-18); CALCIUM LEVEL 9.3 MG/DL (8.8-10.2); CARBON DIOXIDE LEVEL 28 MEQ/L (21-32); CHLORIDE LEVEL 108 MEQ/L (98-107); CHOLESTEROL LEVEL 159 MG/DL (<200); CHOLESTEROL RISK RATIO 2.523 (<5); CREATININE FOR GFR 0.64 MG/DL (0.55-1.30); GLOMERULAR FILTRATION RATE > 60.0 (>32); GLUCOSE, FASTING 86 MG/DL (70-100); HDL CHOLESTEROL 63 MG/DL (>40); LDL CHOLESTEROL 85 MG/DL (<100); NON-HDL-C 96 MG/DL; POTASSIUM SERUM 4.2 MEQ/L (3.5-5.1); SODIUM LEVEL 142 MEQ/L (136-145); TOTAL PROTEIN 7.2 GM/DL (6.4-8.2); TRIGLYCERIDES LEVEL 53 MG/DL (<150)
== END ==
LOC: M SFHCADAM 08:42
PROVIDERS: ATTEND Family Medicine
DX: E03.9 Hypothyroidism, unspecified (principal); Z87.19 Personal history of other diseases of the digestive system

== ENCOUNTER → 2022-05-06 | Outpatient (CLI) | payer MEDICARE ==
[2022-05-06 12:49] LABS: HEMATOCRIT 43.9 % (36.0-47.0); HEMOGLOBIN 13.7 g/dl (12.0-15.5); MEAN CORPUSCULAR HEMOGLOBIN 28.9 pg (27.0-33.0); MEAN CORPUSCULAR HGB CONC 31.2 g/dl (32.0-36.5); MEAN CORPUSCULAR VOLUME 92.6 fl (80.0-96.0); PLATELET COUNT, AUTOMATED 279 10^3/uL (150-450); RED BLOOD COUNT 4.74 10^6/uL (4.00-5.40); WHITE BLOOD COUNT 8.7 10^3/uL (4.0-10.0)
[2022-05-06 13:23] LABS: ALKALINE PHOSPHATASE 64 U/L (46-116); ALT/SGPT 28 U/L (7.0-40); AST/SGOT 28 U/L (<34); BILIRUBIN,TOTAL 0.6 MG/DL (0.3-1.2); BLOOD UREA NITROGEN 17 MG/DL (9-23); CALCIUM LEVEL 9.2 MG/DL (8.3-10.6); CARBON DIOXIDE LEVEL 28 MMOL/L (20-31); CHLORIDE LEVEL 107 MMOL/L (98-107); CHOLESTEROL LEVEL 172 MG/DL (<200); CHOLESTEROL RISK RATIO 2.89 (<5); CREATININE FOR GFR 0.71 MG/DL (0.55-1.30); GLOMERULAR FILTRATION RATE > 60.0 (>32); GLUCOSE, FASTING 97 MG/DL (74-106); HDL CHOLESTEROL 59.4 MG/DL (>40); LDL CHOLESTEROL 97.8 MG/DL (<100); NON-HDL-C 113 MG/DL; POTASSIUM SERUM 4.5 MMOL/L (3.5-5.1); SODIUM LEVEL 142 MMOL/L (136-145); THYROID STIMULATING HORMONE 1.895 uIU/ML (0.55-4.78); TOTAL PROTEIN 6.9 G/DL (5.7-8.2); TRIGLYCERIDES LEVEL 74 MG/DL (<150)
[2022-05-06 13:25] LABS: FREE T4 1.24 NG/DL (0.89-1.76)
== END ==
LOC: M WUC 09:50
PROVIDERS: ATTEND Family Medicine
DX: M72.2 Plantar fascial fibromatosis (principal); E03.9 Hypothyroidism, unspecified

== ENCOUNTER → 2022-12-25 | Outpatient (CLI) | payer MEDICARE ==
[2022-12-25 11:49] LABS: HEMATOCRIT 44.3 % (36.0-47.0); MEAN CORPUSCULAR HEMOGLOBIN 29.2 pg (27.0-33.0); MEAN CORPUSCULAR HGB CONC 31.6 g/dl (32.0-36.5); MEAN CORPUSCULAR VOLUME 92.3 fl (80.0-96.0); PLATELET COUNT, AUTOMATED 300 10^3/uL (150-450); WHITE BLOOD COUNT 7.5 10^3/uL (4.0-10.0)
[2022-12-25 12:10] LABS: ALBUMIN 3.9 G/DL (3.2-5.2); ALKALINE PHOSPHATASE 62 U/L (46-116); ALT/SGPT 32 U/L (7.0-40); AST/SGOT 14 U/L (<34); BILIRUBIN,TOTAL 0.7 MG/DL (0.3-1.2); BLOOD UREA NITROGEN 21 MG/DL (9-23); CALCIUM LEVEL 9.2 MG/DL (8.3-10.6); CARBON DIOXIDE LEVEL 31 MMOL/L (20-31); CHLORIDE LEVEL 108 MMOL/L (98-107); CHOLESTEROL LEVEL 170 MG/DL (<200); CHOLESTEROL RISK RATIO 2.48 (<5); CREATININE FOR GFR 0.66 MG/DL (0.55-1.30); GLOMERULAR FILTRATION RATE > 60.0 (>32); GLUCOSE, FASTING 84 MG/DL (74-106); HDL CHOLESTEROL 68.3 MG/DL (>40); LDL CHOLESTEROL 91.5 MG/DL (<100); NON-HDL-C 101.7 MG/DL; POTASSIUM SERUM 4.7 MMOL/L (3.5-5.1); SODIUM LEVEL 143 MMOL/L (136-145); TRIGLYCERIDES LEVEL 51 MG/DL (<150)
[2022-12-25 12:14] LABS: THYROID STIMULATING HORMONE 3.717 uIU/ML (0.55-4.78)
== END ==
LOC: M PLALAB 07:35
PROVIDERS: ATTEND Family Medicine
DX: E03.9 Hypothyroidism, unspecified (principal); I11.9 Hypertensive heart disease without heart failure; T39.395A Adverse effect of other nonsteroidal anti-inflammatory drugs [NSAID], initial encounter

== ENCOUNTER → 2023-03-15 | Outpatient (REF) | payer MEDICARE | LOC: M LAB REF 11:40 | PROVIDERS: ATTEND Nurse Practitioner Family | DX: R30.0 Dysuria (principal) ==

== ENCOUNTER → 2023-12-28 | Outpatient (CLI) | payer MEDICARE ==
[2023-12-28 10:13] LABS: HEMOGLOBIN 13.3 g/dl (12.0-15.5); MEAN CORPUSCULAR HEMOGLOBIN 29.6 pg (27.0-33.0); MEAN CORPUSCULAR HGB CONC 32.4 g/dl (32.0-36.5); MEAN CORPUSCULAR VOLUME 91.1 fl (80.0-96.0); PLATELET COUNT, AUTOMATED 257 10^3/uL (150-450)
[2023-12-28 10:40] LABS: ALBUMIN 3.7 G/DL (3.2-5.2); ALKALINE PHOSPHATASE 59 U/L (46-116); ALT/SGPT 32 U/L (7.0-40); AST/SGOT 38 U/L (<34); BILIRUBIN,TOTAL 0.8 MG/DL (0.3-1.2); BLOOD UREA NITROGEN 21 MG/DL (9-23); CALCIUM LEVEL 9.5 MG/DL (8.3-10.6); CARBON DIOXIDE LEVEL 29 MMOL/L (20-31); CHLORIDE LEVEL 110 MMOL/L (98-107); CHOLESTEROL LEVEL 171 MG/DL (<200); CHOLESTEROL RISK RATIO 3.21 (<5); CREATININE FOR GFR 0.74 MG/DL (0.55-1.30); GLOMERULAR FILTRATION RATE > 60.0 (>32); GLUCOSE, FASTING 97 MG/DL (74-106); HDL CHOLESTEROL 53.2 MG/DL (>40); NON-HDL-C 117.8 MG/DL; POTASSIUM SERUM 4.3 MMOL/L (3.5-5.1); SODIUM LEVEL 143 MMOL/L (136-145); TOTAL PROTEIN 6.8 G/DL (5.7-8.2); TRIGLYCERIDES LEVEL 59 MG/DL (<150)
[2023-12-28 10:41] LABS: FREE T4 1.24 NG/DL (0.89-1.76); THYROID STIMULATING HORMONE 2.096 uIU/ML (0.55-4.78)
== END ==
LOC: M PLALAB 08:10
PROVIDERS: ATTEND Family Medicine
DX: I11.9 Hypertensive heart disease without heart failure (principal); E07.9 Disorder of thyroid, unspecified